=== PATIENT | male | born 1935 | race Caucasian/White ===

== ENCOUNTER → 2019-09-20 13:35 | Outpatient (BNVA) | payer MEDICARE, SELFPAY | PROVIDERS: Referring Provider Physician Assistant Medical; Visit Provider Orthopaedic Surgery | DX: M25.512 Pain in left shoulder (principal) | CPT/HCPCS: 73030 ==

== ENCOUNTER 2019-11-12 13:37 | Emergency (ER) | payer MEDICARE, SELFPAY ==
[2019-11-12 13:40] VITALS: BMI 27.1
[2019-11-12 13:42] VITALS: BP 187/111; PULSE 94; RESP 18; TEMP 36.9; O2SAT 94
--- NOTE | 2019-11-12 13:44 | W.ED.WOUNDLC ---
HPI - Wound/Laceration General: Chief Complaint: Wound/Laceration Stated Complaint: HEAD LAC Time Seen by Provider: 11/12/19 13:41 Source: patient Mode of arrival: ambulatory Limitations: no limitations History of Present Illness: HPI narrative: Patient was working on a porch at home today when the being gave away and came down on patient's head and right forearm. Patient has a injury to the right forearm and a scalp laceration to the head. Patient reports no fall. Patient reports no headache. Patient denies any use of blood thinners. Tetanus up to date. Review of Systems General: Reports: 10 or more systems reviewed and unremarkable except in HPI and below Skin/Breast: Reports: other (laceration scalp, abrasion right forearm) PFSH ED PFSH: Social History Smoking and tobacco status: former smoker Alcohol intake: never Physical Exam Const: COMMON NORMALS: no apparent distress and oriented x3 GENERAL APPEARANCE: cooperative HENMT: COMMON NORMALS: normocephalic, external ears normal, EAC's normal, TM's normal bilaterally and external nose normal HEAD & SCALP: normal to inspection and normocephalic FACE & SINUS: normal facial exam NOSE: external nose normal GENERAL EAR: hearing not grossly impaired EXTERNAL EAR: Yes external ears normal EXTERNAL AUDITORY CANAL: EAC's normal TYMPANIC MEMBRANE: TM's normal bilaterally MOUTH: oral and palatal mucosa normal THROAT: posterior oropharynx normal Eye: COMMON NORMALS: PERRL and EOMs intact bilaterally PUPIL: Yes PERRL Neck/C-Spine: COMMON NORMALS: full ROM and no lymphadenopathy Lymph: LYMPHATIC: no lymphedema noted Chest: COMMONS NORMALS: inspection of chest normal and palpation of chest normal Resp: COMMON NORMALS: normal respiratory effort and clear to auscultation bilaterally AUSCULTATION: clear to auscultation bilaterally Cardio: COMMON NORMALS: regular rate and regular rhythm RATE: regular rate RHYTHM: regular rhythm GI: COMMON NORMALS: normal to inspection, nondistended, normoactive bowel sounds and non-tender : COMMON NORMALS: Yes no CVA tenderness BLADDER/KIDNEY EXAM: Yes no CVA tenderness Back/Pelvis: COMMON NORMALS: no CVA tenderness and thoracic and lumbar spine normal to inspection Extremity: COMMON NORMALS: normal to inspection GENERAL: No edema Neuro: COMMON NORMALS: oriented x3, moves all extremities and no focal motor deficits Psych: COMMON NORMALS: mental status grossly normal and cooperative Skin: NARRATIVE SKIN EXAM: 3 cm laceration to the left parietal scalp area. Patient also has a 4 cm x 1 cm area of abrasion to the right forearm. Procedures Laceration Laceration 1: Site: scalp Side (If applicable): left Size (cm): 3 Description: linear Depth: simple, single layer Local Anesthetic: bupivacaine 0.5% Amount of anesthesia used (mL): 4 Pre-repair: wound explored and irrigated extensively Skin layer closed with: other (staple) Number of sutures: 5 Technique: simple, interrupted Course Vital Signs: Vital signs: Vital Signs Temperature 98.4 F 11/12/19 13:42 Pulse Rate 68 11/12/19 14:18 Respiratory Rate 18 11/12/19 14:18 Blood Pressure 171/86 11/12/19 14:18 Pulse Oximetry 96 11/12/19 14:18 MDM - Wound/Laceration MDM Narrative: Medical decision making narrative: Patient comes in today for concerns of laceration to the scalp and abrasion to the right forearm. Exam notes no focal neural deficits. Pupils are equal and reactive. No blood in the nares, posterior pharynx, or both ears. Patient has a 3 cm laceration to the parietal area of the left scalp. Patient also has an abrasion to the right forearm. Differential diagnosis includes laceration, foreign body, head injury, fracture. No sign of fracture or foreign body was noted in the wounds. Reviewed recommendations for treatment with closure of the laceration with 5 enriqueta. Patient tolerated well. Patient's tetanus was up-to-date. Reviewed post procedure care and need for follow-up. Patient and family report understanding. Discharge Plan Discharge Patient Disposition: Home, Self-Care Clinical Impression: Laceration, Abrasion Condition: Stable Prescriptions: New cephalexin 500 mg capsule 500 mg PO BID 7 Days Qty: 14 RF: 0 No Action aspirin 325 mg tablet 325 mg PO ONCE RF: 0 Discharge Orders: Discharge Order (Routine); Ordered 11/12/19 Ordered By: Chang Alvarado Referrals: [facility] [Other] Discharge Diet: Usual diet Discharge Activity: Increase activity as tolerated Patient Instructions: Scalp Laceration Activity Restrictions/Additional Instructions: Keep wound clean and dry Try to keep enriqueta dry for the next 48 hours [place] out in 7 days Return to ER for headache, vomiting or new concerns Follow-up with primary care in one week Discharge Date/Time: 11/12/19 14:18 Coding Level of Care Code ED Senior Pl Sql Developer for Chg Fwd Exam Comprehensive
[2019-11-12] MEDS: bacitracin ointment Pkt 1 EACH TOPICAL (14:09)
[2019-11-12 14:18] VITALS: BP 171/86; PULSE 68; RESP 18; O2SAT 96
== END 2019-11-12 14:18 | disposition home or self-care (01) ==
PROVIDERS: Emergency Provider Nurse Practitioner Family
DX: S01.01XA Laceration without foreign body of scalp, initial encounter (principal); S50.811A Abrasion of right forearm, initial encounter; Z87.891 Personal history of nicotine dependence; W22.8XXA Striking against or struck by other objects, initial encounter; Y92.008 Other place in unspecified non-institutional (private) residence as the place of occurrence of the external cause
CPT/HCPCS: 12002; 12345; 99281; 99282

== ENCOUNTER → 2021-11-21 08:16 | Outpatient (BNVA) | payer MEDICARE, SELFPAY | PROVIDERS: Visit Provider Nurse Practitioner Family | DX: N40.1 Benign prostatic hyperplasia with lower urinary tract symptoms (principal) | CPT/HCPCS: 81003 ==

== ENCOUNTER → 2022-01-06 14:18 | Outpatient (BNVA) | payer MEDICARE, SELFPAY | PROVIDERS: Visit Provider Urology | DX: N40.1 Benign prostatic hyperplasia with lower urinary tract symptoms (principal); R39.198 Other difficulties with micturition | CPT/HCPCS: 81003 ==

== ENCOUNTER → 2022-04-24 14:13 | Outpatient (BNVA) | payer MEDICARE, SELFPAY | PROVIDERS: Visit Provider Urology | DX: N40.1 Benign prostatic hyperplasia with lower urinary tract symptoms (principal) | CPT/HCPCS: 81003; 99213 ==

== ENCOUNTER → 2022-10-02 07:59 | Outpatient (BNVA) | payer OTHER, SELFPAY | PROVIDERS: Visit Provider Urology | DX: N40.1 Benign prostatic hyperplasia with lower urinary tract symptoms (principal) | CPT/HCPCS: 81003 ==

== ENCOUNTER → 2022-12-31 09:34 | Outpatient (BNVA) | payer OTHER, SELFPAY | PROVIDERS: Visit Provider Podiatrist Foot & Ankle Surgery | DX: B35.1 Tinea unguium (principal); M20.41 Other hammer toe(s) (acquired), right foot; M20.42 Other hammer toe(s) (acquired), left foot; L84 Corns and callosities | CPT/HCPCS: 73630 ==

== ENCOUNTER 2023-03-18 13:53 | Outpatient (CLI) | payer MEDICARE, SELFPAY ==
--- NOTE | 2023-03-18 14:02 | CTR_ITS ---
PROCEDURE INFORMATION: Exam: CT Pelvis Without Contrast Exam date and time: 03/18/2023 2:30 PM Age: 87 years old Clinical indication: Pelvic pain; Patient HX: Back pain and testicular pain especially in the mornings. Narrow urine stream with blood if forced x 1 year. TECHNIQUE: Imaging protocol: Computed tomography of the pelvis without contrast. Radiation optimization: All CT scans at this facility use at least one of these dose optimization techniques: automated exposure control; mA and/or kV adjustment per patient size (includes targeted exams where dose is matched to clinical indication); or iterative reconstruction. REPORTING DATA: Count of CT and Cardiac NM exams in prior 12 months: This patient has received 0 known CTs and 0 known cardiac nuclear medicine studies in the 12 months prior to the current study. COMPARISON: CT abdomen pelvis w con* [id number] 12/21/2017 4:16 AM RADIATION DOSE METRICS: Total DLP (mGy-cm): 215.46 FINDINGS: Stomach and bowel: Diverticulosis of the distal colon. No diverticulitis. Appendix: No evidence of appendicitis. Intraperitoneal space: Unremarkable. No free air. No significant fluid collection. Lymph nodes: Unremarkable. No enlarged lymph nodes. Urinary bladder: The urinary bladder is of normal size and contour. No wall thickening. Reproductive: Enlarged prostate measuring 4.5 cm with small posterior calcifications. No focal lesion visualized. Bones/joints: Degenerative changes of the lumbar spine. No fracture. Soft tissues: Unremarkable. CT/CT pelvis con [id number] IMPRESSION: 1. No acute findings. 2. Enlarged prostate. No focal lesion identified. 3. Normal urinary bladder.
== END 2023-03-18 13:54 | disposition home or self-care (01) ==
PROVIDERS: PCP Physician Assistant; Visit Provider Physician Assistant
DX: R10.2 Pelvic and perineal pain (principal); N40.1 Benign prostatic hyperplasia with lower urinary tract symptoms; R39.198 Other difficulties with micturition; R31.9 Hematuria, unspecified; N50.819 Testicular pain, unspecified; M54.9 Dorsalgia, unspecified
CPT/HCPCS: 72192

== ENCOUNTER 2023-06-08 13:15 | Emergency (ER) | payer MEDICARE, SELFPAY ==
[2023-06-08 13:19] VITALS: BP 133/69; PULSE 82; RESP 16; TEMP 36.6; O2SAT 95; BMI 20.7
--- NOTE | 2023-06-08 14:02 | XR_ITS ---
WS: [id number] EXAMINATION: XR chest 1V portable [id number] REASON FOR EXAM: dyspnea/cough ORDER DATE: 06/08/2023 2:03 PM FINDINGS: There are perihilar and parenchymal granulomatous calcifications. Cardiomegaly is demonstrated. Ther e is an atherosclerotic aorta containing calcified plaque. There are no pleural effusions. IMPRESSION: CARDIOMEGALY WITH NO ACUTE PULMONARY CHANGE.
[2023-06-08 14:21] LABS: Basophils # 0.1 10^3/uL (0.0-0.1); Basophils % 0.9 %; Eosinophils # 0.1 10^3/uL (0.0-0.8); Eosinophils % 1.4 %; Hematocrit 40.1 % (37-53); Lymphocytes # 1.6 10^3/uL (0.8-4.8); Lymphocytes % 28.6 %; Mean Corpuscular HGB Conc 34.2 g/dL (30-55); Mean Corpuscular Hemoglobin 31.2 pg (27-33); Mean Corpuscular Volume 91.3 fl (82-101); Mean Platelet Volume 9.7 fL (7.4-10.4); Monocytes # 0.9 10^3/uL (0.2-0.9); Monocytes % 15.4 %; Neutrophils # 3.05 10^3/uL (1.8-7.7); Neutrophils % 53.5 %; Nucleated Red Blood Cells % 0 %; Platelet Count 201 10^3/cmm (157-399); Red Blood Count 4.39 10^6/uL (3.85-5.65)
--- NOTE | 2023-06-08 14:25 | W.ED.SKABFB ---
HPI - Skin/Abscess/Foreign Bdy General: Chief complaint: Skin/Abscess/Foreign Body Stated complaint: possible allergic reaction, upper body rash Time Seen by Provider: 06/08/23 13:32 Source: patient Mode of arrival: ambulatory History of Present Illness: 89-year-old male presents to the emergency room with a rash. He has a vasculitis-like rash to his upper extremities. He also has significant ecchymosis even some bulla formation over some of the rash on his chest and upper arms. This began 2 days after he started a course of Bactrim and he continued taking the Bactrim until he finished 7 days developed significant muscle aches with this he is not having difficulty breathing. The rash has increased. He denies any fever sweats or chills. MD complaint: rash Onset (ago): day(s) Location: generalized Relieving factors: none Exacerbating factors: none Associated symptoms: Deny arthralgias, chills, cough, fever(s), itching, myalgias, nausea, rigidity, short of breath or vomiting Treatments prior to arrival: none Review of Systems Const: Reports: fatigue and malaise; Denies: fever(s) or chills ENMT: Denies: throat pain, ear or mastoid pain, nasal discharge or nasal congestion Card: Denies: chest pain, edema, dyspnea on exertion or orthopnea Resp: Denies: dyspnea, productive cough or non-productive cough GI: Denies: nausea or vomiting : Denies: flank pain, dysuria, urinary frequency or urinary urgency Skin/Breast: Reports: rash, pruritus, erythema, skin pain, skin tenderness and changes in skin color PFSH ED PFSH: Medical History BPH loc w urin obs/LUTS Surgical History History of lumbar fusion Hx of cholecystectomy Family History Father , age 66 Cancer lung Mother , Age 80's of unknown cause Social History Smoking and tobacco status: former smoker Alcohol intake: never Substance/Drug Use: never Marital status: Current occupational status: retired Physical Exam Const: GENERAL APPEARANCE: cooperative and comfortable ORIENTATION/CONSCIOUSNESS: Yes awake, Yes oriented to person, Yes oriented to place and Yes oriented to time HENMT: COMMON NORMALS: normocephalic, atraumatic and hearing grossly normal bilaterally HEAD & SCALP: normocephalic and atraumatic Resp: COMMON NORMALS: normal respiratory effort, No retractions, No use of accessory muscles and clear to auscultation bilaterally AUSCULTATION: clear to auscultation bilaterally Cardio: COMMON NORMALS: regular rate, regular rhythm and No murmurs present (Cardio) RATE: regular rate RHYTHM: regular rhythm GI: COMMON NORMALS: Soft to palpation and No hepatosplenomegaly present AUSCULTATION: Yes normoactive bowel sounds PALPATION: Yes Soft to palpation, No Tenderness to palpation present (GI), No Guarding due to palpation present (GI) and Yes No hepatosplenomegaly present Extremity: COMMON NORMALS: normal to inspection, capillary refill normal, no clubbing, cyanosis or edema, no calf tenderness and no pedal edema Neuro: SENSORIUM/ORIENTATION: Yes oriented to person, Yes oriented to place and Yes oriented to time Skin: OTHER: Reddened erythematous rash it is not indurated and a few areas are small bulla formation that have deroofed and drained. 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 Discharged home on steroids and cetirizine he is not having any respiratory compromise advised him to consider himself allergic to all sulfa-based drugs from known and should not take any. He should follow-up in 2 to 3 days his primary care doctor. Medical Records I reviewed the patient's medical records. Lab Data I reviewed the patient's lab results. 06/08/23 14:15 06/08/23 14:15 Laboratory Results WBC 5.70 10^3/uL (3.29-11.43) 06/08/23 14:15 RBC 4.39 10^6/uL (3.85-5.65) 06/08/23 14:15 Hgb 13.70 g/dL (11.27-16.99) 06/08/23 14:15 Hct 40.1 % (37-53) 06/08/23 14:15 MCV 91.3 fl (82-101) 06/08/23 14:15 MCH 31.2 pg (27-33) 06/08/23 14:15 MCHC 34.2 g/dL (30-55) 06/08/23 14:15 RDW 14.0 % (12.1-15.1) 06/08/23 14:15 Plt Count 201 10^3/cmm (157-399) 06/08/23 14:15 MPV 9.7 fL (7.4-10.4) 06/08/23 14:15 Neut % (Auto) 53.5 % 06/08/23 14:15 Lymph % (Auto) 28.6 % 06/08/23 14:15 [place] % (Auto) 15.4 % 06/08/23 14:15 Eos % (Auto) 1.4 % 06/08/23 14:15 Baso % (Auto) 0.9 % 06/08/23 14:15 Neut # (Auto) 3.05 10^3/uL (1.8-7.7) 06/08/23 14:15 Lymph # (Auto) 1.6 10^3/uL (0.8-4.8) 06/08/23 14:15 [place] # (Auto) 0.9 10^3/uL (0.2-0.9) 06/08/23 14:15 Eos # (Auto) 0.1 10^3/uL (0.0-0.8) 06/08/23 14:15 Baso # (Auto) 0.1 10^3/uL (0.0-0.1) 06/08/23 14:15 Nucleated RBC % (auto) 0 % 06/08/23 14:15 Nucleated RBCs # 0.0 /100WBC 06/08/23 14:15 Sodium 133 mmol/L (136-145) L 06/08/23 14:15 Potassium 4.1 mmol/L (3.5-5.1) 06/08/23 14:15 Chloride 99 mmol/L (98-107) 06/08/23 14:15 Carbon Dioxide 23 mmol/L (22-29) 06/08/23 14:15 Anion Gap 15.1 (5-19) 06/08/23 14:15 BUN 14 mg/dL (8-23) 06/08/23 14:15 Creatinine 1.1 mg/dL (0.7-1.2) 06/08/23 14:15 GFR Calculation Not Reportable 06/08/23 14:15 Glucose 103 mg/dL (65-115) 06/08/23 14:15 Calculated Osmolality 277 mOsm/kg (285-295) L 06/08/23 14:15 Calcium 8.8 mg/dL (8.5-10.5) 06/08/23 14:15 Total Bilirubin 0.4 mg/dL (0.15-1.2) 06/08/23 14:15 AST 19 U/L (0-40) 06/08/23 14:15 ALT 9 U/L (0-41) 06/08/23 14:15 Alkaline Phosphatase 98 U/L (40-130) 06/08/23 14:15 Total Protein 7.2 g/dL (6.6-8.7) 06/08/23 14:15 Albumin 4.0 g/dL (3.5-5.2) 06/08/23 14:15 Globulin 3.2 g/dL (1.3-4.6) 06/08/23 14:15 All radiology interpretation(s) finalized by discharge Discharge Plan Discharge Patient Disposition: Home Clinical Impression: Urticarial vasculitis, Allergic reaction Condition: Stable Prescriptions: New prednisone 20 mg tablet 20 mg PO TID Qty: 15 0RF Rx Instructions: 1 p.o. 3 times daily x3 days, 1 p.o. twice daily x2 days, 1 p.o. daily x2 days cetirizine 10 mg tablet 10 mg PO BID Qty: 30 0RF Discharge Orders: Discharge ED (Routine); Ordered 06/08/23 Ordered By: Bishnu Cherry Referrals: Domingo Quinones DO [Primary Care Provider] - Patient Instructions: Opioid Safety, Pain Management Activity Restrictions/Additional Instructions: Follow-up with your doctor in 2 to 3 days to reevaluate the reaction do not take sulfa based drugs in the future. The reaction today represents a true allergic reaction Coding Level of Care Code ED Technical Service Representative for Ellie Jones
[2023-06-08] MEDS: dexamethasone 10 mg/mL INJ IM (14:31)
[2023-06-08] MEDS: diphenhydrAMINE 50 mg/mL SDV 1mL 25 MG IVP (14:32)
[2023-06-08 14:48] LABS: Alanine Aminotransferase 9 U/L (0-41); Alkaline Phosphatase 98 U/L (40-130); Anion Gap 15.1 (5-19); Aspartate Amino Transferase 19 U/L (0-40); Blood Urea Nitrogen 14 mg/dL (8-23); Calcium 8.8 mg/dL (8.5-10.5); Carbon Dioxide 23 mmol/L (22-29); Chloride 99 mmol/L (98-107); Globulin 3.2 g/dL (1.3-4.6); Glucose 103 mg/dL (65-115); Osmolality Calculated 277 mOsm/kg (285-295); Potassium 4.1 mmol/L (3.5-5.1); Sodium 133 mmol/L (136-145); Total Bilirubin 0.4 mg/dL (0.15-1.2); Total Protein 7.2 g/dL (6.6-8.7)
== END 2023-06-08 15:58 | disposition home or self-care (01) ==
PROVIDERS: Emergency Provider Family Medicine; PCP Family Medicine
DX: L50.9 Urticaria, unspecified (principal); T36.8X5A Adverse effect of other systemic antibiotics, initial encounter; Z87.891 Personal history of nicotine dependence
CPT/HCPCS: 36415; 71045; 80053; 85025; 96372; 96374; 99284; J1100; J1200

== ENCOUNTER → 2023-07-09 13:44 | Outpatient (BNVA) | payer MEDICARE, SELFPAY | PROVIDERS: PCP Family Medicine; Visit Provider Surgery | DX: K22.2 Esophageal obstruction | CPT/HCPCS: 99204 ==

== ENCOUNTER → 2023-07-23 15:26 | Outpatient (BNVA) | payer MEDICARE, SELFPAY | PROVIDERS: PCP Family Medicine; Visit Provider Surgery | DX: K22.2 Esophageal obstruction (principal) | CPT/HCPCS: G0463 ==

== ENCOUNTER 2024-05-17 08:24 | Emergency (ER) | payer MEDICARE, SELFPAY ==
[2024-05-17 08:30] VITALS: BP 167/71; PULSE 76; RESP 15; TEMP 36.6; O2SAT 96; BMI 22.7
--- NOTE | 2024-05-17 08:42 | XRR_ITS ---
PROCEDURE INFORMATION: Exam: XR Left Foot Exam date and time: 05/17/2024 8:50 AM Age: 88 years old Clinical indication: Injury or trauma; Fall; Blunt trauma; Foot; Left; Injury date: Couple of days ago TECHNIQUE: Imaging protocol: Radiologic exam of the left foot. Views: 3 or more views. COMPARISON: No relevant prior studies available. FINDINGS: Bones/joints: Tiny, minimally displaced avulsion fractures at the medial bases of the 2nd and 4th proximal phalanges. Mild contour deformity at the base of the 5th proximal phalanx may represent subtle nondisplaced fracture. Note made of mild widening of the Lisfranc joint space. Cjip-ve-grvefawr degenerative change in the midfoot. Soft tissues: Normal. XR/XR foot LT min 3V* [id number] IMPRESSION: 1. Possible Lisfranc fracture. Weightbearing views of the left foot recommended. 2. Tiny, minimally displaced avulsion fractures at the medial bases of the 2nd and 4th proximal phalanges.
--- NOTE | 2024-05-17 08:42 | ED_ITS ---
HPI - Extremity Problem General: Chief complaint: Extremity Injury, Lower Stated complaint: left foot injury Time Seen by Provider: 05/17/24 08:42 History of Present Illness: 88-year-old male presents emergency room after stumbling and falling 3 days ago. He tripped and had a flexion injury to the first second and third toes on his left foot he fell and has an abrasion on his left forearm as well he denies striking his head no loss consciousness no other injury. He has increased pain in his foot. He is unsure of his last tetanus shot. Associated symptoms: Deny chest pain, fever(s) or rash Related Data Home Medications Medication Instructions Recorded Confirmed amlodipine 2.5 mg tablet 2.5 mg PO DAILY 05/17/24 05/17/24 Allergies Allergy/AdvReac Type Severity Reaction Status Date / Time cortisone Allergy swelling Verified 07/23/23 15:26 in eyes Iodinated Contrast Media Allergy increased Verified 07/23/23 15:26 BP sulfamethoxazole Allergy ALGY-Rash Verified 07/23/23 15:26 Review of Systems Const: Denies: fever(s) or chills Card: Denies: chest pain Resp: Denies: dyspnea GI: Denies: abdominal pain : Denies: dysuria, urinary frequency or urinary urgency Musc: Reports: extremity pain; Denies: neck pain or back pain Skin/Breast: Denies: rash PFSH ED PFSH: Medical History BPH loc w urin obs/LUTS Surgical History History of lumbar fusion Hx of cholecystectomy Family History Father , age 66 Cancer lung Mother , Age 80's of unknown cause Social History Smoking and tobacco/nicotine status: former use of tobacco/nicotine Alcohol intake: never Substance/Drug Use: never Marital status: Current occupational status: retired Physical Exam Const: COMMON NORMALS: no acute distress GENERAL APPEARANCE: cooperative and comfortable ORIENTATION/CONSCIOUSNESS: Yes awake, Yes oriented to person, Yes oriented to place and Yes oriented to time HENMT: COMMON NORMALS: normocephalic, atraumatic and hearing grossly normal bilaterally HEAD & SCALP: normocephalic and atraumatic Resp: COMMON NORMALS: normal respiratory effort, No retractions, No use of accessory muscles and clear to auscultation bilaterally AUSCULTATION: clear to auscultation bilaterally Cardio: COMMON NORMALS: regular rate, regular rhythm and No murmurs present (Cardio) RATE: regular rate RHYTHM: regular rhythm GI: COMMON NORMALS: Soft to palpation and No hepatosplenomegaly present AUSCULTATION: Yes normoactive bowel sounds PALPATION: Yes Soft to palpation, No Tenderness to palpation present (GI), No Guarding due to palpation present (GI) and Yes No hepatosplenomegaly present Extremity: COMMON NORMALS: capillary refill normal, no clubbing, cyanosis or edema, no calf tenderness and no pedal edema OTHER: Ecchymosis of the second third and fourth toes of the left foot no other deformity Neuro: SENSORIUM/ORIENTATION: Yes oriented to person, Yes oriented to place and Yes oriented to time Skin: COMMON NORMALS: no rashes or lesions noted GENERAL SKIN EXAM: no rashes or lesions noted Course Vital Signs: Vital signs: Vital Signs Temperature 97.9 F 05/17/24 08:30 Pulse Rate 54 L 05/17/24 13:03 Respiratory Rate 15 05/17/24 08:30 Blood Pressure 178/98 05/17/24 13:03 Pulse Oximetry 97 05/17/24 13:03 Oxygen Delivery Me thod Room Air 05/17/24 11:48 MDM - Extremity (Nontraumatic) Medical Decision Making X-ray initially does show proximal phalanx fracture in the fifth PIP phalanx fracture. Is her avulsion type fracture is not significantly displaced there is a questionable income of the Lisfranc fracture discussed with podiatry they reviewed the films they asked that we go ahead and do the CT. CT did not show any evidence for the fracture to confirm the other fractures that were seen. Will discharge patient in a posterior short leg cast and nonweightbearing have him follow-up with urology next week. Elevate whenever able. Medical Records I reviewed the patient's medical records. Lab Data I reviewed the patient's lab results. Radiology Impressions Foot X-Ray 05/17/24 08:42 IMPRESSION: 1. Possible Lisfranc fracture. Weightbearing views of the left foot recommended. 2. Tiny, minimally displaced avulsion fractures at the medial bases of the 2nd and 4th proximal phalanges. Forearm X-Ray 05/17/24 08:42 IMPRESSION: 1. No acute fracture or malaligment. 2. Few foreign bodies project in the medial and lateral soft tissues of the mid forearm, and over the thumb distal metacarpal head. Foot CT 05/17/24 10:54 IMPRESSION: Exam is limited somewhat due to positioning 1. Avulsion fractures at the base of the second proximal phalanx and base of the fourth proximal phalanx. 2. Additional tiny nondisplaced fracture involving the base of the fifth proximal phalanx. 3. 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 All radiology interpretation(s) finalized by discharge Discharge Plan Discharge Patient Disposition: Home Clinical Impression: Fracture of proximal phalanx of toe of left foot Condition: Stable Prescriptions: No Action amlodipine 2.5 mg tablet 2.5 mg PO DAILY Discharge Orders: Discharge ED (Routine); Ordered 05/17/24 Ordered By: Bishnu Cherry Referrals: Domingo Quinones DO [Primary Care Provider] - Patient Instructions: Opioid Safety, Pain Management Activity Restrictions/Additional Instructions: Thank you for choosing [facility] for your healthcare needs today. It is very important that you follow up as instructed or that you return to the Emergency Department should you have concerns or if your condition changes or worsens in any way. You were found to have fractures of the toes on the left foot. You should wear a splint and use crutches until you follow-up with podiatry. Coding Level of Care Code ED Wastewater Technician for Ellie Jones
--- NOTE | 2024-05-17 08:42 | XRR_ITS ---
PROCEDURE INFORMATION: Exam: XR Left Forearm Exam date and time: 05/17/2024 8:51 AM Age: 88 years old Clinical indication: Injury or trauma; Fall; Blunt trauma (contusions or hematomas); Arm, upper; Left; Injury date: Couple of days ago TECHNIQUE: Imaging protocol: Radiologic exam of the left forearm. Views: 2 views. COMPARISON: No relevant prior studies available. FINDINGS: Bones/joints: No acute fracture or malalignment. No worrisome lytic or blastic osseous lesion. No appreciable cortical erosion or periosteal reaction. Joint spaces are preserved. No joint effusion. Soft tissues: Few foreign bodies project in the medial and lateral soft tissues of the mid forearm, and over the thumb distal metacarpal head. XR/XR forearm LT 2V [id number] IMPRESSION: 1. No acute fracture or malaligment. 2. Few foreign bodies project in the medial and lateral soft tissues of the mid forearm, and over the thumb distal metacarpal head.
[2024-05-17] MEDS: tetanus-dipt-pertussis 0.5 mL SDV IM (09:09)
--- NOTE | 2024-05-17 10:54 | CT_ITS ---
WS: [id number] Noncontrast CT LEFT foot TECHNIQUE: Noncontrast CT LEFT foot with coronal and sagittal reformatted images. CLINICAL INFORMATION: trauma COMPARISON: None. DLP: 190.[address] scans at [facility] use at least one of these dose optimization techniques: automated e xposure control; mA and/or kV adjustment per patient size (includes targeted exams where dose is matc hed to clinical indication); or iterative reconstruction. FINDINGS: Avulsion fracture of the base of the second proximal phalanx. Additional tiny avulsion base of the fo urth proximal phalanx. Tiny nondisplaced fracture involving the base of the fifth proximal phalanx. S econd metatarsal appears intact. Degenerative change at the first and second cuneiforms which appear intact. 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 Soft tissue calcification at the head of the fifth metatarsal. Normal cuboid. Calcaneus appears rebecca l. Talus appears normal. Normal distal tibial plafond. Distal fibula and lateral malleolus are normal . Normal navicular. CT/CT foot LT wo con* [id number] IMPRESSION: Exam is limited somewhat due to positioning 1. Avulsion fractures at the base of the second proximal phalanx and base of t he fourth proximal phalanx. 2. Additional tiny nondisplaced fracture involving the base of the fifth proxi mal phalanx. 3. 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
[2024-05-17 11:48] VITALS: PULSE 89; O2SAT 98
[2024-05-17 13:03] VITALS: BP 178/98; PULSE 54; O2SAT 97
== END 2024-05-17 13:04 | disposition home or self-care (01) ==
PROVIDERS: Emergency Provider Family Medicine; PCP Family Medicine
DX: S92.515A Nondisplaced fracture of proximal phalanx of left lesser toe(s), initial encounter for closed fracture (principal); Z87.891 Personal history of nicotine dependence; W01.0XXA Fall on same level from slipping, tripping and stumbling without subsequent striking against object, initial encounter; Z23 Encounter for immunization
CPT/HCPCS: 29515; 73090; 73630; 73700; 90715; 99284

== ENCOUNTER 2024-05-19 15:48 | Outpatient (CLI) | payer MEDICARE, SELFPAY | END 2024-05-19 15:49 | disposition home or self-care (01) | LOC: SPT 15:51 | PROVIDERS: PCP Family Medicine; Visit Provider Podiatrist Foot & Ankle Surgery | DX: S92.335A Nondisplaced fracture of third metatarsal bone, left foot, initial encounter for closed fracture (principal); S92.325A Nondisplaced fracture of second metatarsal bone, left foot, initial encounter for closed fracture; X58.XXXA Exposure to other specified factors, initial encounter; B35.1 Tinea unguium; M20.41 Other hammer toe(s) (acquired), right foot; M20.42 Other hammer toe(s) (acquired), left foot; L84 Corns and callosities; W01.0XXA Fall on same level from slipping, tripping and stumbling without subsequent striking against object, initial encounter | CPT/HCPCS: 97760; 99213; L4361 ==

== ENCOUNTER → 2024-06-09 16:02 | Outpatient (BNVA) | payer MEDICARE, SELFPAY | PROVIDERS: PCP Family Medicine; Visit Provider Podiatrist Foot & Ankle Surgery | DX: S92.912A Unspecified fracture of left toe(s), initial encounter for closed fracture; S92.512A Displaced fracture of proximal phalanx of left lesser toe(s), initial encounter for closed fracture; S92.515A Nondisplaced fracture of proximal phalanx of left lesser toe(s), initial encounter for closed fracture; M20.41 Other hammer toe(s) (acquired), right foot; M20.42 Other hammer toe(s) (acquired), left foot; L84 Corns and callosities | CPT/HCPCS: 73630; 99213 ==

== ENCOUNTER → 2024-07-13 15:16 | Outpatient (BNVA) | payer MEDICARE, SELFPAY | PROVIDERS: PCP Family Medicine; Visit Provider Podiatrist Foot & Ankle Surgery | DX: L60.0 Ingrowing nail (principal); S92.912A Unspecified fracture of left toe(s), initial encounter for closed fracture; X58.XXXA Exposure to other specified factors, initial encounter; B35.1 Tinea unguium; M20.41 Other hammer toe(s) (acquired), right foot; M20.42 Other hammer toe(s) (acquired), left foot; L84 Corns and callosities | CPT/HCPCS: 11750; 99213 ==

== ENCOUNTER 2024-07-20 15:57 | Emergency (ER) | payer MEDICARE, SELFPAY ==
--- NOTE | 2024-07-20 16:01 | XRR_ITS ---
PROCEDURE INFORMATION: Exam: XR Left Wrist Exam date and time: 07/20/2024 4:28 PM Age: 89 years old Clinical indication: Injury or trauma; Fall; Blunt trauma (contusions or hematomas); Wrist and hand; Left TECHNIQUE: Imaging protocol: Radiologic exam of the left wrist. Views: 3 or more views. COMPARISON: CR XR hand LT min 3V* [id number] 07/20/2024 4:28 PM FINDINGS: Bones/joints: No definite acute fracture or dislocation. Joint spaces are preserved. Soft tissues: Redemonstrated radiopaque foreign body adjacent to the 1st metacarpal. Punctate hyperdense foci also seen adjacent to the distal radius. Scattered vascular calcifications. XR/XR wrist LT min 3V* [id number] IMPRESSION: No acute osseous findings.
--- NOTE | 2024-07-20 16:01 | XRR_ITS ---
PROCEDURE INFORMATION: Exam: XR Left Hand Exam date and time: 07/20/2024 4:28 PM Age: 89 years old Clinical indication: Injury or trauma; Fall; Blunt trauma (contusions or hematomas); Wrist and hand; Left TECHNIQUE: Imaging protocol: Radiologic exam of the left hand. Views: 3 or more views. COMPARISON: CR XR forearm LT 2V [id number] 05/17/2024 8:51 AM FINDINGS: Bones/joints: Mild polyarticular degenerative changes involving the interphalangeal joints. Mild cortical irregularity with the thin lucency involving the 5th middle phalanx. No dislocation. Soft tissues: Small radiopaque foreign body again seen adjacent to the 1st metacarpal. XR/XR hand LT min 3V* [id number] IMPRESSION: Mild cortical irregularity along the 5th middle phalanx could represent a nondisplaced fracture or may be artifactual. Correlate with physical exam findings.
[2024-07-20 16:32] VITALS: BP 191/85; PULSE 88; RESP 18; TEMP 36.7; O2SAT 94; BMI 22.7
[2024-07-20] MEDS: lidocaine-epi 2% 20 mL INJ INJECTION (18:28)
[2024-07-20] MEDS: tetanus-dipt-pertussis 0.5 mL SDV IM (18:28)
[2024-07-20] MEDS: acetaminophen 500 mg Tablet 1000 MG PO (18:29)
[2024-07-20 19:17] VITALS: BP 179/81; PULSE 78; RESP 16; O2SAT 96
--- NOTE | 2024-07-20 20:56 | ED_ITS ---
HPI - Extremity Problem General: Chief complaint: Extremity Injury, Upper Stated complaint: fell left hand injury Time Seen by Provider: 07/20/24 16:51 Source: patient Mode of arrival: ambulatory Limitations: no limitations History of Present Illness: Patient is an 89-year-old male who presents the emergency department with left hand injury after a fall. Patient states he tripped over his feet, landed on an outstretched left hand and is having pain diffusely to his left hand, though worse to the little finger. There is also report a laceration of the palmar aspect of his left hand, states his tetanus is not believed to be up-to-date. Bleeding is controlled on arrival however, no blood thinner use. No other injuries reported with the fall. He did take some Tylenol prior to coming in and states this did help his pain. MD Complaint: extremity pain (Left hand) Onset (ago): hour(s) Associated symptoms: Deny chest pain, fever(s) or rash Related Data Home Medications Medication Instructions Recorded Confirmed amlodipine 2.5 mg tablet 2.5 mg PO DAILY 05/17/24 07/13/24 Previous Rx's Medication Instructions Recorded CAM boot/weight bearing/Left foot #1 ea 05/19/24 Allergies Allergy/AdvReac Type Severity Reaction Status Date / Time cortisone Allergy swelling Verified 07/13/24 15:30 in eyes Iodinated Contrast Media Allergy increased Verified 07/13/24 15:30 BP sulfamethoxazole Allergy ALGY-Rash Verified 07/13/24 15:30 Review of Systems General: Reports: 10 or more systems reviewed and unremarkable except in HPI and below Const: Denies: fever(s) or chills Card: Denies: chest pain Resp: Denies: dyspnea or productive cough GI: Denies: abdominal pain, nausea, vomiting or diarrhea : Denies: flank pain Musc: Reports: extremity pain (Left hand); Denies: neck pain, back pain, extremity swelling, joint pain, joint swelling, joint redness, joint warmth, limited range of motion or muscle weakness Skin/Breast: Reports: new lesions (Laceration to left palm); Denies: rash Neuro: Denies: headache(s), numbness in extremities or weakness in extremities PFS ED PFSH: Medical History BPH loc w urin obs/LUTS Surgical History History of lumbar fusion Hx of cholecystectomy Family History Father , age 66 Cancer lung Mother , Age 80's of unknown cause Social History Smoking and tobacco/nicotine status: unknown if used tobacco/nicotine Alcohol intake: never Substance/Drug Use: never Marital status: Current occupational status: retired Physical Exam Const: COMMON NORMALS: no acute distress, average body habitus, patient oriented x3, no limitations, healthy appearing, alert and well nourished HENMT: COMMON NORMALS: normocephalic and atraumatic HEAD & SCALP: normocephalic and atraumatic Neck/C-Spine: COMMON NORMALS: full ROM, no lymphadenopathy, supple and no meningeal signs Resp: COMMON NORMALS: normal respiratory effort, No use of accessory muscles and clear to auscultation bilaterally AUSCULTATION: clear to auscultation bilaterally Cardio: COMMON NORMALS: regular rate and regular rhythm RATE: regular rate RHYTHM: regular rhythm Extremity: COMMON NORMALS: full ROM and capillary refill normal NARRATIVE EXTREMITY EXAM: Tenderness to palpation of the left hand, primarily to the ulnar aspect as well as to the left little finger. No swelling or obvious deformity. No bruising. Distal sensations intact. Neuro: COMMON NORMALS: patient oriented x3, moves all extremities, no focal motor deficits and no sensory deficits noted SENSORIUM/ORIENTATION: Yes alert MENINGEAL SIGNS: Yes no meningeal signs Skin: COMMON NORMALS: turgor normal NARRATIVE SKIN EXAM: Laceration noted to left palm, just inferior to palmar aspect of left fifth MCP. No active bleeding, this is measuring approximately 2.5 cm in length. GENERAL SKIN EXAM: turgor normal Procedures Laceration Laceration 1: Site: hand Side (If applicable): left Size (cm): 2.5 Description: linear (Curvilinear) and clean Depth: simple, single layer Local Anesthetic: lidocaine 2% and with epi Amount of anesthesia used (mL): 2 Pre-repair: wound explored, irrigated extensively and deep structures intact Skin layer closed with: other (Prolene) Size (cm): 4-0 Number of sutures: 4 Technique: simple, interrupted Course Vital Signs: Vital signs: Vital Signs Temperature 98.0 F 07/20/24 16:32 Pulse Rate 78 07/20/24 19:17 Respiratory Rate 16 07/20/24 19:17 Blood Pressure 179/81 07/20/24 19:17 Pulse Oximetry 96 07/20/24 19:17 Oxygen Delivery Me thod Room Air 07/20/24 16:32 MDM - Extremity (Nontraumatic) Medical Decision Making Patient had a fall, injuries to left hand include pain and a laceration. Laceration was repaired, see procedure note. He was already started on antibiotics by primary care earlier today. His tetanus was also updated today. X-ray of the left hand showed potentially a fracture of the fifth middle phalanx, patient was endorsing pain in this area so we will matheus tape with the left ring finger and refer him to orthopedics. Return precautions given. Patient be discharged home at this time. Lab Data Radiology Impressions Hand X-Ray 07/20/24 16:01 IMPRESSION: Mild cortical irregularity along the 5th middle phalanx could represent a nondisplaced fracture or may be artifactual. Correlate with physical exam findings. Wrist X-Ray 07/20/24 16:01 IMPRESSION: No acute osseous findings. All radiology interpretation(s) finalized by discharge Discharge Plan Discharge Patient Disposition: Home Clinical Impression: Fracture of phalanx of left little finger, Laceration of left palm Condition: Stable Prescriptions: No Action (DME) CAM boot/weight bearing/Left foot See Rx Instructions .Route .MEDSUPPLY Qty: 1 0RF Rx Instructions: As directed amlodipine 2.5 mg tablet 2.5 mg PO DAILY Discharge Orders: Discharge ED (Routine); Ordered 07/20/24 Ordered By: Ike Curtis Referrals: Domingo Quinones, [Primary Care Provider] - Patient Instructions: Fractures - Phalanx (Finger), Laceration (ED) Activity Restrictions/Additional Instructions: Follow-up with orthopedics, await call for appointment scheduling. Have your sutures out in 5 days, and take antibiotics as you are already prescribed. Keep wound dry at all times to facilitate healing, when you clean it please just dab it with warm soap and water. Tylenol and ibuprofen for pain relief. Return with any new or worsening symptoms. 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
--- NOTE | 2024-07-21 11:40 | DCPLANNER ---
messaged ortho for er f/u
== END 2024-07-20 19:19 | disposition home or self-care (01) ==
PROVIDERS: Emergency Provider Physician Assistant; PCP Family Medicine
DX: S62.607A Fracture of unspecified phalanx of left little finger, initial encounter for closed fracture (principal); S61.412A Laceration without foreign body of left hand, initial encounter; W19.XXXA Unspecified fall, initial encounter
CPT/HCPCS: 12001; 73110; 73130; 90471; 90715; 99283

== ENCOUNTER 2024-07-27 09:19 | Emergency (ER) | payer MEDICARE, SELFPAY ==
[2024-07-27 09:27] VITALS: BP 161/74; PULSE 63; RESP 18; TEMP 36.3; O2SAT 95; BMI 21.4
--- NOTE | 2024-07-27 09:53 | ED_ITS ---
HPI - Recheck/Abnormal Lab/Rx General: Chief Complaint: Recheck/Abnormal Lab/Rx Stated Complaint: remove stiches out of hand Time Seen by Provider: 07/27/24 09:28 History of Present Illness: 89-year-old male who presents emergency room asking to have sutures removed. They replaced 1 week ago. He has been fully functional in his hand no difficulty there is a question of fracture previously not having any further pain on the fifth digit where there was suspicion of a fracture on the previous x-ray. Related Data Home Medications Medication Instructions Recorded Confirmed amlodipine 2.5 mg tablet 2.5 mg PO QAM 05/17/24 07/27/24 amoxicillin 500 mg-potassium 1 tab PO BID 07/27/24 07/27/24 clavulanate 125 mg tablet fluticasone propionate 50 1 - 2 spray intranasal DAILY PRN 07/27/24 07/27/24 mcg/actuation nasal allergies spray,suspension Previous Rx's Medication Instructions Recorded CAM boot/weight bearing/Left foot #1 ea 05/19/24 Allergies Allergy/AdvReac Type Severity Reaction Status Date / Time cortisone Allergy swelling Verified 07/13/24 15:30 in eyes Iodinated Contrast Media Allergy increased Verified 07/13/24 15:30 BP sulfamethoxazole Allergy ALGY-Rash Verified 07/13/24 15:30 PFSH ED PFSH: Medical History BPH loc w urin obs/LUTS Surgical History History of lumbar fusion Hx of cholecystectomy Family History Father , age 66 Cancer lung Mother , Age 80's of unknown cause Social History Smoking and tobacco/nicotine status: unknown if used tobacco/nicotine Alcohol intake: never Substance/Drug Use: never Marital status: Current occupational status: retired Physical Exam Narrative: EXAM NARRATIVE: Sutures removed wound Steri-Stripped part of the wound proximally is slightly dehisced skin is tucked into the incision. No active bleeding no signs of infection. He has no pain with palpation along the left fifth finger. He is able to flex and hold against resistance. Course Vital Signs: Vital signs: Vital Signs Temperature 97.4 F L 07/27/24 09:27 Pulse Rate 63 07/27/24 09:27 Respiratory Rate 18 07/27/24 09:27 Blood Pressure 161/74 07/27/24 09:27 Pulse Oximetry 95 07/27/24 09:27 Oxygen Delivery Me thod Room Air 07/27/24 09:27 MDM - Recheck/Abnormal Lab/Rx Medical Decision Making Sutures removed without difficulty wound care instructions given reinforced with Steri-Strips Medical Records I reviewed the patient's medical records. No radiology studies performed this visit Discharge Plan Discharge Patient Disposition: Home Clinical Impression: Encounter for removal of sutures Condition: Stable Prescriptions: No Action (DME) CAM boot/weight bearing/Left foot See Rx Instructions .Route .MEDSUPPLY Qty: 1 0RF Rx Instructions: As directed fluticasone propionate 50 mcg/actuation spray,suspension 1 - 2 spray INTRANASAL DAILY PRN (Reason: allergies) amoxicillin-pot clavulanate 500-125 mg tablet 1 tab PO BID amlodipine 2.5 mg tablet 2.5 mg PO QAM Discharge Orders: Discharge ED (Routine); Ordered 07/27/24 Ordered By: Bishnu Cherry Referrals: Domingo Quinones, DO [Primary Care Provider] - Discharge Activity: Resume usual activity Patient Instructions: Stitches Removal (ED), Opioid Safety, Pain Management Activity Restrictions/Additional Instructions: Thank you for choosing [facility] for your healthcare needs today. It is very important that you follow up as instructed or that you return to the Emergency Department should you have concerns or if your condition changes or worsens in any way. 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
== END 2024-07-27 10:02 | disposition home or self-care (01) ==
PROVIDERS: Emergency Provider Family Medicine; PCP Family Medicine
DX: Z48.02 Encounter for removal of sutures (principal)
CPT/HCPCS: 99281

== ENCOUNTER 2024-08-21 10:34 | Emergency (ER) | payer MEDICARE, SELFPAY ==
[2024-08-21 10:50] VITALS: BP 171/92; PULSE 81; RESP 22; TEMP 35.9; O2SAT 96; BMI 22.7
--- NOTE | 2024-08-21 10:59 | CTR_ITS ---
PROCEDURE INFORMATION: Exam: CT Head Without Contrast Exam date and time: 08/21/2024 11:13 AM Age: 89 years old Clinical indication: Injury or trauma; Fall; Blunt trauma (contusions or hematomas); Additional info: Fall, head injury TECHNIQUE: Imaging protocol: Computed tomography of the head without contrast. Radiation optimization: All CT scans at this facility use at least one of these dose optimization techniques: automated exposure control; mA and/or kV adjustment per patient size (includes targeted exams where dose is matched to clinical indication); or iterative reconstruction. COMPARISON: CT head w con [id number] 06/29/2019 11:01 AM RADIATION DOSE METRICS: Total DLP (mGy-cm): 1162.6 FINDINGS: Brain: There are bilateral periventricular white matter and centrum semiovale hypodensities, consistent with chronic ischemic small vessel disease. No recent infarct, intracranial bleed or mass effect. Cerebral ventricles: No ventriculomegaly. Paranasal sinuses: Visualized sinuses are unremarkable. No fluid levels. Mastoid air cells: Visualized mastoid air cells are well aerated. Orbital cavities: Post bilateral cataract surgery. Bones: Benign hyperostosis frontalis is present. Soft tissues: Unremarkable. Vasculature: Left vertebral artery calcified atheroma. CT/CT head wo con* [id number] IMPRESSION: No acute intracranial posttraumatic changes.
--- NOTE | 2024-08-21 11:05 | CTR_ITS ---
PROCEDURE INFORMATION: Exam: CT Maxillofacial Without Contrast Exam date and time: 08/21/2024 11:13 AM Age: 89 years old Clinical indication: Injury or trauma; Fall; Blunt trauma (contusions or hematomas); Forehead and nose; Additional info: Trauamatic facial pain TECHNIQUE: Imaging protocol: Computed tomography of the face without contrast. Radiation optimization: All CT scans at this facility use at least one of these dose optimization techniques: automated exposure control; mA and/or kV adjustment per patient size (includes targeted exams where dose is matched to clinical indication); or iterative reconstruction. COMPARISON: CT facial bones w con [id number] 06/29/2019 11:09 AM RADIATION DOSE METRICS: Total DLP (mGy-cm): 686.2 FINDINGS: Paranasal sinuses: No air-fluid levels. Orbital cavities: Post bilateral cataract surgery. Vasculature: Calcified atheromas of the visualized arteries. Bones: There is a nondisplaced fracture of the right nasal bone. Soft tissues: Soft tissue swelling overlying the nose. CT/CT facial bones wo con* [id number] IMPRESSION: Nondisplaced fracture of the nasal bone with overlying soft tissue swelling.
--- NOTE | 2024-08-21 11:32 | W.ED.FALL ---
HPI - Fall General: Chief Complaint: Fall Stated Complaint: open cut on nose, bleeding Time Seen by Provider: 08/21/24 10:56 History of Present Illness: 89-year-old man who presents emergency room after a fall. He says he tripped and fell he caught himself with his hands and has some abrasions on his hands. He hit his nose on asphalt. He has a puncture/laceration on the top of his nose. He is concerned about that and that he might have broken his nose. He is not on any anticoagulation. He did not lose consciousness. He is had no nausea or vomiting. No altered mental status. Related Data Home Medications Medication Instructions Recorded Confirmed amlodipine 2.5 mg tablet 2.5 mg PO QAM 05/17/24 07/27/24 amoxicillin 500 mg-potassium 1 tab PO BID 07/27/24 07/27/24 clavulanate 125 mg tablet fluticasone propionate 50 1 - 2 spray intranasal DAILY PRN 07/27/24 07/27/24 mcg/actuation nasal allergies spray,suspension Previous Rx's Medication Instructions Recorded CAM boot/weight bearing/Left foot #1 ea 05/19/24 Allergies Allergy/AdvReac Type Severity Reaction Status Date / Time cortisone Allergy swelling Verified 07/13/24 15:30 in eyes Iodinated Contrast Media Allergy increased Verified 07/13/24 15:30 BP sulfamethoxazole Allergy ALGY-Rash Verified 07/13/24 15:30 Review of Systems Narrative: Constitutional symptoms: Negative except as documented in HPI. Skin symptoms: Negative except as documented in HPI. Eye symptoms: Negative except as documented in HPI. ENMT symptoms: Negative except as documented in HPI. Respiratory symptoms: Negative except as documented in HPI. Cardiovascular symptoms: Negative except as documented in HPI. Gastrointestinal symptoms: Negative except as documented in HPI. Genitourinary symptoms: Negative except as documented in HPI. Musculoskeletal symptoms: Negative except as documented in HPI. Neurologic symptoms: Negative except as documented in HPI. Psychiatric symptoms: Negative except as documented in HPI. Endocrine symptoms: Negative except as documented in HPI. [facility] ED PFSH: Medical History BPH loc w urin obs/LUTS Surgical History History of lumbar fusion Hx of cholecystectomy Family History Father , age 66 Cancer lung Mother , Age 80's of unknown cause Social History Smoking and tobacco/nicotine status: unknown if used tobacco/nicotine Alcohol intake: never Substance/Drug Use: never Marital status: Current occupational status: retired Physical Exam Narrative: EXAM NARRATIVE: General: Alert, no acute distress. Skin: Warm, dry. Some abrasions on the hands Head: Normocephalic, swelling of the nose. There is a puncture type laceration on the bridge of the nose. Slight deviation to the right. No septal hematoma. Neck: Supple, trachea midline. Eye: Extraocular movements are intact. Ears, nose, mouth and throat: mucosa moist. Cardiovascular: Regular, Normal peripheral perfusion. Respiratory: Lungs are clear to auscultation, respirations are non-labored, breath sounds are equal, Symmetrical chest wall expansion. Gastrointestinal: Soft, Nontender, Non distended Musculoskeletal: Normal ROM, no deformity. Neurological: Alert and oriented, No focal neurological deficit observed. Psychiatric: Cooperative, appropriate mood & affect. Course Vital Signs: Vital signs: Vital Signs Temperature 96.7 F L 08/21/24 10:50 Pulse Rate 81 08/21/24 10:50 Respiratory Rate 22 H 08/21/24 10:50 Blood Pressure 171/92 08/21/24 10:50 Pulse Oximetry 96 08/21/24 10:50 Oxygen Delivery Me thod Room Air 08/21/24 10:50 MDM - Fall Medical Decision Making CT head: No acute intracranial process. no intracranial hemorrhage, no evidence of infarct. no evidence of acute fracture.This was reviewed and interpreted by myself the ER physician. CT of the facial bones: Nondisplaced fracture of the nasal bone with overlying soft tissue swelling. This was reviewed and interpreted by myself the emergency room physician. I also reviewed the radiology report. Appear to have some septal deviation. I recommend he follow-up with ENT. Patient states he thinks he is up-to-date on his Assessment and plan: Fall Nasal fracture Facial laceration Steri-Strips were applied to the small Puncture/laceration on the nose. - Discharged home - Discussed plan with patient. Answered any questions. - Evaluation and treatment of this problem were appropriate in the emergency setting. Lab Data Radiology Impressions Head CT 08/21/24 10:59 IMPRESSION: No acute intracranial posttraumatic changes. Face CT 08/21/24 11:05 IMPRESSION: Nondisplaced fracture of the nasal bone with overlying soft tissue swelling. All radiology interpretation(s) finalized by discharge Discharge Plan Discharge Patient Disposition: Home Clinical Impression: Fracture of nasal bone, Facial laceration, Fall Condition: Stable Prescriptions: No Action (DME) CAM boot/weight bearing/Left foot See Rx Instructions .Route .MEDSUPPLY Qty: 1 0RF Rx Instructions: As directed fluticasone propionate 50 mcg/actuation spray,suspension 1 - 2 spray INTRANASAL DAILY PRN (Reason: allergies) amoxicillin-pot clavulanate 500-125 mg tablet 1 tab PO BID amlodipine 2.5 mg tablet 2.5 mg PO QAM Discharge Orders: Discharge ED (Routine); Ordered 08/21/24 Ordered By: Tanisha Haji Referrals: Domingo Quinones DO [Primary Care Provider] - Estevan Collins MD [Physician] - 4-7 days (Please call for a follow-up appointment with Dr. Collins with regards to your broken nose.) Discharge Diet: Usual diet Discharge Activity: Increase activity as tolerated Patient Instructions: Nasal Fracture (ED), Fall Prevention for Older Adults (ED), Opioid Safety, Pain Management Activity Restrictions/Additional Instructions: Thank you for choosing [facility] for your healthcare needs today. Please realize this is an emergency room and that we are providing you with a medical screening exam and this may not be complete and all inclusive of all the testing and or work up that you may need to determine your ailment or severity of your illness. You have been screened and evaluated and felt safe for discharge. Health conditions do change or evolve sometimes and as such it is important that you follow up with your Primary Doctor to be re checked, 3-5 days is a general good time frame for follow up. 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
[2024-08-21 12:08] VITALS: BP 164/126; PULSE 65; O2SAT 94
== END 2024-08-21 12:09 | disposition home or self-care (01) ==
PROVIDERS: Emergency Provider Emergency Medicine; PCP Family Medicine
DX: S02.2XXA Fracture of nasal bones, initial encounter for closed fracture (principal); S01.81XA Laceration without foreign body of other part of head, initial encounter; W01.0XXA Fall on same level from slipping, tripping and stumbling without subsequent striking against object, initial encounter
CPT/HCPCS: 70450; 70486; 99284

== ENCOUNTER 2025-01-04 08:47 | Outpatient (CLI) | payer MEDICARE, SELFPAY ==
--- NOTE | 2025-01-04 08:56 | CTR_ITS ---
PROCEDURE INFORMATION: Exam: CT Neck Without Contrast Exam date and time: 01/04/2025 9:19 AM Age: 89 years old Clinical indication: Condition or disease; Other: Esophageal cancer; Additional info: Throat pain TECHNIQUE: Imaging protocol: Computed tomography of the neck without contrast. Radiation optimization: All CT scans at this facility use at least one of these dose optimization techniques: automated exposure control; mA and/or kV adjustment per patient size (includes targeted exams where dose is matched to clinical indication); or iterative reconstruction. COMPARISON: CT facial bones wo con* [id number] 08/21/2024 11:13 AM RADIATION DOSE METRICS: Total DLP (mGy-cm): 153.79 FINDINGS: Orbital cavities: The patient is post bilateral cataract surgery. Paranasal sinuses: There is a small amount of layering fluid and polypoid disease in the maxillary antra. Scattered mucosal disease is noted in the ethmoid air cells on the left. Nasal cavity: There is a rightward convexity deviation of the nasal septum. Salivary glands: Normal. Glands are normal in size. Pharynx: There is a 7 mm linear calcification along the left side of the epiglottis.. No significant tonsillar enlargement. Larynx: Unremarkable. Epiglottis is normal. Thyroid: There is a hypodense nodule in the inferior right thyroid lobe measuring 3.6 x 2.4 x 3.0 cm. Trachea: Visualized trachea is unremarkable. Lungs: Apical scarring is noted in the lungs. There is a 3 mm calcified granuloma in the right upper lobe. Lymph nodes: Calcific right paratracheal lymphadenopathy is noted Bones/joints: Cervical spondylosis is noted. Soft tissues: Unremarkable. No significant soft tissue swelling. Noncontrast technique limits assessment. CT/CT neck wo con [id number] IMPRESSION: No soft tissue mass or suspicious lymphadenopathy in the neck. No evidence for airway obstruction. Right thyroid nodule. Please correlate with dedicated thyroid ultrasound, consider tissue sampling. Paranasal sinus disease as described. 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 COMMENTS: Consistent with the [employer] [employer]'s Incidental Findings Committee white paper (J [employer] Radiol 2015): In patients aged 35 years and older with an incidental thyroid nodule equal to or greater than 1.[address], MRI or extrathyroidal US, further evaluation with dedicated thyroid US is recommended for patients with normal life expectancy and without comorbidities. For smaller nodules without suspicious features, no further evaluation or follow up is recommended.
== END 2025-01-04 08:48 | disposition home or self-care (01) ==
LOC: RAD 08:49
PROVIDERS: PCP Family Medicine; Visit Provider Otolaryngology
DX: R07.0 Pain in throat (principal); R09.82 Postnasal drip; E04.1 Nontoxic single thyroid nodule; Z98.890 Other specified postprocedural states; J34.89 Other specified disorders of nose and nasal sinuses; J34.2 Deviated nasal septum; R93.89 Abnormal findings on diagnostic imaging of other specified body structures; J98.4 Other disorders of lung; J84.10 Pulmonary fibrosis, unspecified; R59.0 Localized enlarged lymph nodes; M47.892 Other spondylosis, cervical region
CPT/HCPCS: 70490

== ENCOUNTER → 2025-02-28 07:22 | Outpatient (BNVA) | payer MEDICARE, SELFPAY | PROVIDERS: PCP Family Medicine; Visit Provider Surgery | DX: R03.0 Elevated blood-pressure reading, without diagnosis of hypertension (principal) | CPT/HCPCS: 99203 ==

== ENCOUNTER → 2025-03-14 10:17 | Outpatient (BNVA) | payer MEDICARE, SELFPAY | PROVIDERS: PCP Family Medicine; Visit Provider Surgery | DX: L72.3 Sebaceous cyst (principal) | CPT/HCPCS: 99212 ==

== ENCOUNTER 2025-07-13 18:01 | Emergency (ER) | payer MEDICARE, SELFPAY ==
--- OUTSIDE RECORDS SUMMARY | 2025-07-10 07:15 | XMS_ITS ---
Author Organization [facility] Address [address] [place] [address] Care Team Providers Care Contact Officer Name Role Phone RAFA PARKER Unavailable [phone] HURSTCANDICE DAMIAN Unavailable [phone] Results Component Value Reference Range Notes Urinalysis, Routine Reviewed date:07/10/2025 01:15:36 PM Interpretation: Performing Lab: Notes/Report: Urine-Color yellow Appearance clear Glucose - Bilirubin - Ketones - Specific [place] 1.030 Occult Blood - pH 6.0 Urine Protein - Urobilinogen,Semi-Qn - Nitrite, Urine - WBC Esterase - REASON FOR VISIT 4 mo w/ ua/pvr/ipss Medications Medication SIG (Take, Route, Frequency, Duration) Notes Start Date End Date Status Tamsulosin HCl 0.4 MG 1 capsule Orally O nce a day; Duration: 90 days 07/11/2025 07/06/2026 Active amLODIPine Besylate Active Sulfamethoxazole-Trimetho prim 800-160 MG 1 tablet Orally twice a day; Duration: 14 days 07/11/2025 07/25/2025 Active Tamsulosin HCl 0.4 MG 1 capsule Orally O nce a day; Duration: 30 days 02/13/2025 02/08/2026 Active Social History Tobacco Use: Social History Observation Description Date Details (start date - stop date) Never Smoker NA - NA Tobacco Control (Standard) Question Answer Notes Tobacco use: Nonsmoker Vital Signs Blood pressure systolic 176 mm Hg 07/10/20 25 Blood pressure diastolic 87 mm Hg 025 Heart Rate 50 /min 07/10/2025 Height 59 in 07/10/2025 Weight 154 lbs 07/10/2025 BMI 31.1 kg/m2 07/10/2025 Height-cm 149.86 cm 07/10/2025 Weight-kg 69.85 kg 07/10/2025 Procedures Procedure Date Ordered Date Performed Result Body Sit e Bladder Scan 07/10/2025 07/10/2025 15ml Encounters Encounter Location Date Provider Diagnosis [facility] [address] [place] [address] 07/10/2025 CANDICE HURST BPH (benign prostati c hyperplasia) N40.0 ; Gross hematuria R31.0 ; Acute prostatitis N41.0 and Benign prostatic hyperplasia with lower urinary tract symptoms N40.1 Assessments Encounter Date Diagnosis (ICD Code) Assessment Notes Treatment Notes Treatment Clinical Notes Section Notes 07/10/2025 BPH (benign prostatic hyperplasia) (ICD-10 - N40.0) 89 yo male with gross hematuria and BPH. CT is normal from standpoint. 07/10/2025 Gross hematuria (ICD-10 - R31.0) 89 yo male with gross hematuria and BPH. CT is normal from standpoint. 07/10/2025 Acute prostatitis (ICD-10 - N41.0) 89 yo male with gross hematuria and BPH. CT is normal from standpoint. 07/10/2025 Benign prostatic hyperplasia with lower urinary tract symptoms (ICD-10 - N40.1) 89 yo male with gross hematuria and BPH. CT is normal from standpoint. Plan Of Treatment Medication Medication Name Sig Start Date Stop Date Notes Tamsulosin HCl 0.4 MG 1 capsule Orally O nce a day; Duration: 90 days 07/11/2025 07/06/2026 Sulfamethoxazole-Trimethopri m 800-160 MG 1 tablet Orally twice a day; Duration: 14 days 07/11/2025 07/25/2025 Next Appt Details Provider Name:CANDICE De Jesus, 09/14/2025 01:50:00 PM, [address] [place], [address], Progress Notes * Alen RIVERA NDOB:1935 ([age] yo M)Acc No.[id number]:07/10/2025 Progress Notes Patient: Chana MOOKIE Alen Thomas Provider: Buddy HURST MD :1935 A ge:89 Y S ex:Male Date:07/10/2025 Address:[address] [place] [address] [id number] Subjective: * Chief Complaints: * 1 . 4 mo w/ ua/pvr/ipss. * HPI: * : Pt is an 89yoM who is here for gross hematuria and LUTS. He says he has seen Dr. Kilpatrick in the past, >2 years ago. He also states he was seeing [facility] up until 3-4m ago. He says he went for gross hematuria and LUTS, but states he was not offered any treatment. His daughter is with him today. She says that she went with him to [facility] and prostate cancer was mention, but they both deny biopsy. Pt denies having any imaging or cystoscopy. He says he had a DREand he was told it was normal other than enlarged. He c/o weak slow stream with straining, hesitancy, intermittency. He has frequency, urgency, nocturia x 3. He c/o dysuria and pelvic discomfort. He reports intermittent gross hematuria over the last 6-12 months. Worse after mowing or riding on the tractor. C T on 03/17/25 N o evidence of nephrolithiasis or enhancing renal mass lesions.The ureters are normal appearing.There is a large prostate indenting the urinary bladder, but I do not see well-defined bladder wall lesions. If symptoms persist, endoscopic evaluation of the bladder may be helpful. Cysto on 03/27/25 s hows enlarged hypervascular prostate. Here today for 4m f/u with UA,PVR and IPSS. * Medical History: T hroat cancer, Heart disease, Hypertension. * Surgical History: B ack surgery (multiple times) 1968. * Hospitalization/Major Diagno stic Procedure: b ack surgery . * Family History: F ather: , Lung cancer. M other: , Myocardial infarction. * Social History: T obacco Use: T obacco Control (Standard) T obacco use: N onsmoker. * Medications: T aking amLODIPine Besylate , Taking Tamsulosin HCl 0.4 MG Capsule 1 capsule Orally Once a day , stop date 02/08/2026, Medication List reviewed and reconciled with the patient Objective: * Vitals: B P: 176/87 mm Hg, HR: 50 /min, Wt: 154 lbs, Wt-k.85 kg, Ht: 59 in, Ht-cm: 149.86 cm, BMI: 31.1 Index, Body Surface Area: 1.7. Assessment: * Assessment: 1. G ross hematuria - R31.0 (Primary) 2 . B PH (benign prostatic hyperplasia) - N40.0 3 . A cute prostatitis - N41.0 4 . B enign prostatic hyperplasia with lower urinary tract symptoms - N40.1 89 yo male with gross hematu gita and BPH. CT is normal from standpoint. Plan: * Treatment: Value Reference Range U rine-Color yellow * A ppearance clear * G lucose - * B ilirubin - * K etones - * S pecific [place] 1.030 * O ccult Blood - * p H 6.0 * U rine Protein - * U robilinogen,Semi-Qn - * N itrite, Urine - * W BC Esterase - ?Procedure: Bladder Scan (Performed Date - 07/10/2025)?15ml2.?Others? Start Tamsulosin HCl Capsule, 0.4 MG, 1 capsule, Orally, Once a day, 90 days, 90 Capsule, Refills 3;?Start Sulfamethoxazole-Trimethoprim Tablet, 800-160 MG, 1 tablet, Orally, twice a day, 14 days, 28 Tablet, Refills 0.?? * Procedure Codes: 8 1003 URINALYSIS, AUTO, W/O SCOPE, 45396 US URINE CAPACITY MEASURE * Billing Information: * Visit Code: * Procedure Codes: 55965 URINALYSIS, AUTO, W/O SCOPE. 51176 US URINE CAPACITY MEASURE. * Electronic signature of AUST IN MD ARIS on 07/13/2025 at 06:05 PM COMMUNICATIONS CONTROLLER Sign off status: Pending * Provider: Buddy HURST MD Date: 09/09/2024 Generated for Junior pollock/Maribel/Bethanyransmitting on: 09/12/2024 06:05 PM COMMUNICATIONS CONTROLLER History and Physical Notes * HPI (History of Present Illness) Category Sub-Category Detail Notes Category Not es Pt is an 89yoM who is here for gross hematuria and LUTS. He says he has seen Dr. Kilpatrick in the past, >2 years ago. He also states he was seeing [facility] up until 3-4m ago. He says he went for gross hematuria and LUTS, but states he was not offered any treatment. His daughter is with him today. She says that she went with him to [facility] and prostate cancer was mention, but they both deny biopsy. Pt denies having any imaging or cystoscopy. He says he had a DREand he was told it was normal other than enlarged. He c/o weak slow stream with straining, hesitancy, intermittency. He has frequency, urgency, nocturia x 3. He c/o dysuria and pelvic discomfort. He reports intermittent gross hematuria over the last 6-12 months. Worse after mowing or riding on the tractor. CT on 03/17/25 No evidence of nephrolithiasis or enhancing renal mass lesions.The ureters are normal appearing.There is a large prostate indenting the urinary bladder, but I do not see well-defined bladder wall lesions. If symptoms persist, endoscopic evaluation of the bladder may be helpful. Cysto on 03/27/25 shows enlarged hypervascular prostate. Here today for 4m f/u with UA,PVR and IPSS
[2025-07-13 18:05] VITALS: BP 147/73; PULSE 63; RESP 16; TEMP 36.6; O2SAT 94; BMI 21.4
--- OUTSIDE RECORDS SUMMARY | 2025-07-13 18:05 | XMS_ITS | Patient Health Record ---
Author Organization [employer] Address [address] [facility] [place] [address] Care Team Providers Care Shipper/Receiver Name Role Phone RAFA PARKER Unavailable [phone] CANDICE HURST Unavailable [phone] Allergies No Known Allergies Results Component Value Reference Range Notes Urinalysis, Routine Reviewed date:03/27/2025 03:47:43 PM Interpretation: Performing Lab: Notes/Report: Urine-Color yellow Appearance clear Glucose - Bilirubin - Ketones - Specific [place] 1.030 Occult Blood - pH 6.0 Urine Protein - Urobilinogen,Semi-Qn - Nitrite, Urine - WBC Esterase - Urinalysis, Routine Reviewed date:07/10/2025 01:15:36 PM Interpretation: Performing Lab: Notes/Report: Urine-Color yellow Appearance clear Glucose - Bilirubin - Ketones - Specific [place] 1.030 Occult Blood - pH 6.0 Urine Protein - Urobilinogen,Semi-Qn - Nitrite, Urine - WBC Esterase - Urinalysis, Routine Reviewed date:02/13/2025 10:10:46 AM Interpretation: Performing Lab: Notes/Report: Urine-Color Yellow Appearance slightly cloudy Glucose - Bilirubin - Ketones - Specific [place] 1.020 Occult Blood - pH 6.0 Urine Protein - Urobilinogen,Semi-Qn - Nitrite, Urine - WBC Esterase - Urinalysis Gross Exam - CT Abdomen, Pelvis w/ + w/o Contrast--[id number] Reviewed date:03/30/2025 01:00:49 PM Interpretation: Performing Lab: Notes/Report: See Below For Report CT Abdomen, Pelvis w/ + w/o Contrast Read See Below For Report Creat Proc NC Reviewed date:03/17/2025 10:03:21 AM Interpretation: Performing Lab: Notes/Report: Creat 1.08 .57-1.17 MG/DL N-yohjiw-x-benzoquinone imine (NAPQI) is a metabolite of acetaminophen, NAPQI concentrations of apparoximately 10 mg/L correlation to toxic levels of acetaminophen demonstrates a greater than or equil to 10% change in results. NAPQI concentrations greater than this may lead to falsely depressed results for patient samples. Use of this assay is not recommended for patients undergoing treatment with phenindione, due to the potential for falsely depressed results. Testing performed at: [address] [place] [address] CLIA ID [id number] BUN Proc NC Reviewed date:03/17/2025 10:03:24 AM Interpretation: Performing Lab: Notes/Report: BUN 13 7-21 MG/DL Testing perform ed at: [address] [place] [address] CLIA ID [id number] Reason For Referral No Information Medications Medication SIG (Take, Route, Frequency, Duration) [...] (Standard) Question Answer Notes Tobacco use: Nonsmoker AUDIT-C (Standard) Question Answer Notes Did you have a drink containing alcohol in the p ast year? No Points 0 Interpretation Negative Problems Problem Type SNOMED Code ICD Code Onset Dates Problem Status W/U Status Risk Notes Problem Gross hematuria (051447304) Gross hematuria (R31.0) Active confirmed Problem Lower urinary tract symptoms due to benign prostatic hypertrophy (21868201803698) Benign prostatic hyperplasia with lower urinary tract symptoms (N40.1) Active confirmed Problem Benign prostatic hyperplasia (891732602) BPH (benign prostatic hyperplasia) (N40.0) Active confirmed Vital Signs Heart Rate 50 /min 07/10/2025 Blood pressure diastolic 87 mm Hg 07/10/2025 Height-cm 149.86 cm 07/10/2025 Weight-kg 69.85 kg 07/10/2025 Height 59 in 07/10/2025 Blood pressure systolic 176 mm Hg 07/10/2025 Weight 154 lbs 07/10/2025 BMI 31.1 kg/m2 07/10/2025 Procedures Procedure Date Ordered Date Performed Result Body Sit e Bladder Scan 02/13/2025 02/13/2025 N/A Bladder Scan 07/10/2025 07/10/2025 15ml Encounters Encounter Location Date Provider Diagnosis [facility] [address] [facility] [address] [facility] [place] [address] 07/10/2025 CANDICE HURST BPH (benign prostati c hyperplasia) N40.0 ; Gross hematuria R31.0 ; Acute prostatitis N41.0 and Benign prostatic hyperplasia with lower urinary tract symptoms N40.1 [facility] [address] [facility] [address] [facility] [place] [address] 02/13/2025 RAFA PARKER Gross hematuria R31. 0 ; Acute prostatitis N41.0 and BPH (benign prostatic hyperplasia) N40.0 [facility] [address] [facility] [address] [facility] [place] [address] 03/27/2025 CANDICE HURST Gross hematuria R31. 0 ; Acute prostatitis N41.0 ; BPH (benign prostatic hyperplasia) N40.0 and Benign prostatic hyperplasia with lower urinary tract symptoms N40.1 [facility] [address] [facility] [place] [address] 02/13/2025 RAFA PARKER Assessments Encounter Date Diagnosis (ICD Code) Assessment Notes Treatment Notes Treatment Clinical Notes Section Notes 02/13/2025 Acute prostatitis (ICD-10 - N41.0) 02/13/2025 Gross hematuria (ICD-10 - R31.0) Pt with nearly 1 year history of intermittent gross hematuria. We discussed the indications and rationale for a hematuria workup including the possibility of malignancy causing hematuria. In terms of the workup specifically, we discussed the need for evaluation of the upper urinary tracts with radiologic imaging and the lower urinary tract with cystoscopy. We will set up the CT scan w/ and w/o contrast and delayed imaging per hematuria protocol. We will also schedule for next available cystoscopy. 07/10/2025 BPH (benign prostatic hyperplasia) (ICD-10 - N40.0) 89 yo male with gross hematuria and BPH. CT is normal from standpoint. 03/27/2025 Gross hematuria (ICD-10 - R31.0) 89 yo male with gross hematuria and BPH. CT is normal from standpoint. Cysto shows enlarged hypervascular prostate. CT and cysto findings reviewed with patient. HEmaturia is likely from his enlarged hypervascular prostate. Plan: RTC in 4 months with IPSS, PVR, and UA all questions answered 03/27/2025 Acute prostatitis (ICD-10 - N41.0) 89 yo male with gross hematuria and BPH. CT is normal from standpoint. Cysto shows enlarged hypervascular prostate. CT and cysto findings reviewed with patient. HEmaturia is likely from his enlarged hypervascular prostate. Plan: RTC in 4 months with IPSS, PVR, and UA all questions answered 07/10/2025 Gross hematuria (ICD-10 - R31.0) 89 yo male with gross hematuria and BPH. CT is normal from standpoint. 02/13/2025 BPH (benign prostatic hyperplasia) (ICD-10 - N40.0) Pt with severe LUTS and dysuria. Will start tamsulosin. Dosing and s/e reviewed. Will give Cipro to r/o prostatitis. Reassess at time of cystoscopy. 07/10/2025 Acute prostatitis (ICD-10 - N41.0) 89 yo male with gross hematuria and BPH. CT is normal from standpoint. 03/27/2025 BPH (benign prostatic hyperplasia) (ICD-10 - N40.0) 89 yo male with gross hematuria and BPH. CT is normal from standpoint. Cysto shows enlarged hypervascular prostate. CT and cysto findings reviewed with patient. HEmaturia is likely from his enlarged hypervascular prostate. Plan: RTC in 4 months with IPSS, PVR, and UA all questions answered 03/27/2025 Benign prostatic hyperplasia with lower urinary tract symptoms (ICD-10 - N40.1) 89 yo male with gross hematuria and BPH. CT is normal from standpoint. Cysto shows enlarged hypervascular prostate. CT and cysto findings reviewed with patient. HEmaturia is likely from his enlarged hypervascular prostate. Plan: RTC in 4 months with IPSS, PVR, and UA all questions answered 07/10/2025 Benign prostatic hyperplasia with lower urinary tract symptoms (ICD-10 - N40.1) 89 yo male with gross hematuria and BPH. CT is normal from standpoint. 02/13/2025 Other Pt reports being seen by [facility] recently as well as Dr. Kilpatrick in the last several years. Will request records from both locations for review. Plan Of Treatment Pending Test Test Name Order Date CT Abd & Pelvis W & [place] contrast [id number] 02/13/2025 Blood Urea Nitrogen (BUN) 02/13/2025 Creatinine Serum 02/13/2025 Next Appt Details Provider Name:CANDICE De Jesus, 09/14/2025 01:50:00 PM, [address] [place], [address], Insurance Providers Payer Name Payer Address Payer Phone Subscriber Number Group Number Insured Name Patient Relationship to Insured Coverage Start Date Coverage End Date [facility] Medicare Advantage PPO [address] [address] [place], [place] [id number] Alen Rivera Self - patient is the insured Medical (General) History Medical History History ICD Code Throat cancer Heart disease Hypertension Surgical History Surgery Date(Month/Year) Back surgery (multiple times) 1968 Hospitalization History Reason Date(Month/Year) back surgery
--- OUTSIDE RECORDS SUMMARY | 2025-07-13 18:06 | XMS_ITS | Encounter Summary ---
Author Organization [facility] Address [address] [place] [address] Care Team Providers Care Button Machine Operator Name Role Phone Duarte Rodriguez MD Primary Care Provider [phone] Encounter Details Date Type Department Care Team (Latest Contact Info) Description 09/23/2007 Outpatient Historical [facility] [place] [address] [place] [address] Ike Elizondo MD NO ADDRESS ON FILE Stricture and Stenosis of Esophagus; Other Specified Disorder of the Esophagus; Diverticulum of Esophagus, Acquired; Duodenal Ulcer; Duodenitis without Mention of Hemorrhage; Personal History of Other Malignant Neoplasm of Skin; Personal History of Allergy to Other Specified Medicinal Agents Social History Tobacco Use Types Packs/Day Years Used Date Smoking Tobacco: Never Assessed Sex and Gender Information Value Date Recorded Sex Assigned at Not on file 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 Gender Identity Not on file Sexual Orientation Not on file documented as of this encounter Plan of Treatment Not on file documented as of this encounter Visit Diagnoses Diagnosis Stricture and stenosis of esophagus Other specified disorder of the esophagus Diverticulum of esophagus, acquired Duodenal ulcer, unspecified as acute or chronic, without hemorrhage, perforation, or obstruction Duodenitis without mention of hemorrhage Personal history of other malignant neoplasm of skin Personal history of allergy to other specified medicinal agents documented in this encounter Care Teams Button Machine Operator Relationship Specialty Start Date End Date Duarte Rodriguez MD [facility] [place] [address] PCP - General 10/05/07 documented as of this encounter
--- OUTSIDE RECORDS SUMMARY | 2025-07-13 18:06 | XMS_ITS | Encounter Summary ---
Author Organization [facility] Address [address] [place] [address] Care Team Providers Care Work From Home Name Role Phone Duarte Rodriguez MD Primary Care Provider [phone] Encounter Details Date Type Department Care Team (Latest Contact Info) Description 10/20/2000 Outpatient Historical [facility] Ear, Nose [facility] Th[facility] [address] [place] 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
--- OUTSIDE RECORDS SUMMARY | 2025-07-13 18:06 | XMS_ITS | Encounter Summary ---
Author Organization [facility] Address [address] [place] [address] Care Team Providers Care Glass Designer Name Role Phone Duarte Rodriguez MD Primary Care Provider [phone] Encounter Details Date Type Department Care Team (Latest Contact Info) Description 11/21/2002 Outpatient Historical [facility] Endoscopy [address] 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
--- OUTSIDE RECORDS SUMMARY | 2025-07-13 18:06 | XMS_ITS | Encounter Summary ---
Author Organization [employer] [facility] Address [address] [facility] [place] [address] Care Team Providers Care Associate Professor Of Church Music Name Role Phone Duarte Rodriguez MD Primary Care Provider Encounter Details Date Type Department Care Team (Latest Contact Info) Description 07/10/1999 Outpatient Historical [facility] Chang Azevedo MD [address] [facility] [address] [place] [address] Need vaccination-viral disease (Primary Dx) Social History Tobacco Use Types Packs/Day Years Used Date Smoking Tobacco: Never Assessed Sex and Gender Information Value Date Recorded Sex Assigned at Not on file 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
--- OUTSIDE RECORDS SUMMARY | 2025-07-13 18:06 | XMS_ITS | Encounter Summary ---
Author Organization [facility] Address [address] [place] [address] Care Team Providers Care In Home Tutor Name Role Phone Duarte Rodriguez MD Primary Care Provider [phone] Encounter Details Date Type Department Care Team (Latest Contact Info) Description 11/27/2003 Outpatient [facility] [address] [place] [address] Duarte Rodriguez MD [address] [place] [address] PROSTATITIS NOS (Primary Dx) Social History Tobacco Use Types Packs/Day Years Used Date Smoking Tobacco: Never Assessed Sex and Gender Information Value Date Recorded Sex Assigned at Not on file 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
--- OUTSIDE RECORDS SUMMARY | 2025-07-13 18:06 | XMS_ITS | Encounter Summary ---
Author Organization [facility] Address [address] 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
--- OUTSIDE RECORDS SUMMARY | 2025-07-13 18:06 | XMS_ITS | Encounter Summary ---
Author Organization [facility] Address [address] [place] [address] Care Team Providers Care Sleeping Car Service Attendant Name Role Phone Duarte Rodriguez MD Primary Care Provider [phone] Encounter Details Date Type Department Care Team (Late st Contact Info) Description 02/12/2003 Emergency [facility] Emergency Department [address] [place] [address] Jose Almazan MD FOREIGN BODY ESOPHAGUS (Primary Dx) Social History Tobacco Use Types Packs/Day Years Used Date Smoking Tobacco: Never Assessed Sex and Gender Information Value Date Recorded Sex Assigned at Not on file 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
--- OUTSIDE RECORDS SUMMARY | 2025-07-13 18:06 | XMS_ITS | Encounter Summary ---
Author Organization [facility] Address [address] [place] [address] Care Team Providers Care Waste Elimination Name Role Phone Duarte Rodriguez MD Primary Care Provider [phone] Encounter Details Date Type Department Care Team (Latest Contact Info) Description 11/03/[address] 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
--- OUTSIDE RECORDS SUMMARY | 2025-07-13 18:06 | XMS_ITS | Encounter Summary ---
Author Organization [facility] Address [address] [place] [address] Care Team Providers Care Construction Plant Operator Name Role Phone Duarte Rodriguez MD Primary Care Provider Encounter Details Date Type Department Care Team (Latest Contact Info) Description 11/27/2003 Outpatient [facility] [address] [place] [address] Duarte Rodriguez MD [address] [place] [address] PROSTATITIS NOS (Primary Dx) Social History Tobacco Use Types Packs/Day Years Used Date Smoking Tobacco: Never Assessed Sex and Gender Information Value Date Recorded Sex Assigned at Not on file Legal Sex Male 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
--- OUTSIDE RECORDS SUMMARY | 2025-07-13 18:06 | XMS_ITS | Encounter Summary ---
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
--- OUTSIDE RECORDS SUMMARY | 2025-07-13 18:06 | XMS_ITS | Clinical Summary ---
Author Organization [facility] Address [address] [place] [address] Phone Care Team Providers Care Bulk Coolers Installer Name Role Phone Duarte Rodriguez MD Primary Care Provider [phone] Allergies Active Allergy Reactions Criticality Noted Date Comments Amoxicillin-Pot Clavulanate Nausea and Vomiting Low 12/13/2020 Ciprofloxacin Nausea and Vomiting Low 12/13/2020 Cortisone Other (See Comments) 02/23/2008 Face and eyes turned black Gabapentin Nausea and Vomiting Low 12/13/2020 Levofloxacin Nausea and Vomiting Low 12/13/2020 Sulfa (Sulfonamide Antibiotics) Nausea and Vomiting Low 12/13/2020 Medications IMODIUM A-D 2 mg Oral Tab Take 2 mg by mouth 2 times daily. Active tamsulosin (FLOMAX) 0.4 mg capsule TAKE 1 CAPSULE BY MOUTH ONCE DAILY 1 2 HOUR FOLLOWING THE SAME MEAL EACH DAY Active Active Problems Problem Noted Date Diagnosed Date Pharyngoesophageal dysphagia 12/27/2020 Arrhythmia 03/28/2010 Immunizations Immunization Administration Dates Next Due Influenza Seasonal Unspecifi ed Formulation IM 07/08/2005,06/14/2004,07/10/1999 Social History Tobacco Use Types Packs/Day Years Used Date Smoking Tobacco: Never Smokeless Tobacco: Never Tobacco Cessation:Counseling Given: No Sex and Gender Information Value Date Recorded Sex Assigned at Not on file Legal Sex Male 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 Gender Identity Not on file Sexual Orientation Not on file Last Filed Vital Signs Vital Sign Reading Time Taken Comments Blood Pressure 158/84 01/30/2021 2:50 PM CDT Pulse 73 01/30/2021 2:50 PM CDT Temperature 36.5 C (97.7 F) 01/13/2021 9:34 PM CDT Respiratory Rate 20 01/30/2021 2:50 PM CDT Oxygen Saturation 93% 01/30/2021 2:50 PM CDT Inhaled Oxygen Concentration - - Weight 78.5 kg (173 lb) 01/23/2021 1:00 PM CDT Height 175.3 cm (5' 9 ) 01/14/2021 4:17 AM CDT Body Mass Index 25.55 01/14/2021 4:17 AM CDT Plan of Treatment Health Maintenance Due Date Last Done Comments PNEUMOCOCCAL VACCINE 50+ YEA RS (1 of 1 - PCV) 1986 ZOSTER VACCINE (1 of 2) 1986 RSV VACCINE (60+ or ) (1 - 1-dose 75+ series) 2011 INFLUENZA VACCINE (#1) 2025 5, 06/14/2004, 07/10/1999 DTAP/TDAP/TD VACCINES (3 - T d or Tdap) 07/20/2034 07/20/2024, 05/17/2024 Insurance [facility] Advance Directives For more information, please contact: [phone] * Full Code (Latest Code Status on File) Date Activated Date Inactivated Comments 01/30/2021 1:24 PM 01/30/2021 5:00 PM Care Teams Bulk Coolers Installer Relationship Specialty Start Date End Date Duarte Rodriguez MD [address] [place] [address] PCP - General 10/05/07
--- OUTSIDE RECORDS SUMMARY | 2025-07-13 18:06 | XMS_ITS | Encounter Summary ---
Author Organization [facility] Address [address] [place] [address] Care Team Providers Care Mold Construction Supervisor Name Role Phone Duarte Rodriguez MD Primary Care Provider [phone] Encounter Details Date Type Department Care Team (Late st Contact Info) Description 10/05/2007 Outpatient [facility] Gastroenterology[address] [place] [address] Ike Elizondo MD NO ADDRESS ON FILE Social History Tobacco Use Types Packs/Day Years Used Date Smoking Tobacco: Never Assessed Sex and Gender Information Value Date Recorded Sex Assigned at Not on file Legal Sex Male 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
--- OUTSIDE RECORDS SUMMARY | 2025-07-13 18:06 | XMS_ITS | Encounter Summary ---
Author Organization [facility] Address [address] [place] [address] Care Team Providers Care Forensic Dna Analyst Name Role Phone Duarte Rodriguez MD Primary Care Provider Encounter Details Date Type Department Care Team (Latest Contact Info) Description 03/14/1998 Outpatient Historical [facility] General and Trauma Surgery-[address] [place] [address] Scout Hamilton MD NO ADDRESS ON FILE Sebaceous cyst (Primary Dx) Social History Tobacco Use Types Packs/Day Years Used Date Smoking Tobacco: Never Assessed Sex and Gender Information Value Date Recorded Sex Assigned at Not on file 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
--- OUTSIDE RECORDS SUMMARY | 2025-07-13 18:06 | XMS_ITS | Encounter Summary ---
Author Organization [facility] Address [address] [place] [address] Care Team Providers Care Manager Hiv Name Role Phone Duarte Rodriguez MD Primary Care Provider Encounter Details Date Type Department Care Team (Latest Contact Info) Description 03/25/2005 Outpatient Historical [facility] [address] [place] [address] Duarte Rodriguez MD [address] [place] [address] HEMOPTYSIS (Primary Dx) Social History Tobacco Use Types Packs/Day Years Used Date Smoking Tobacco: Never Assessed Sex and Gender Information Value Date Recorded Sex Assigned at Not on file Legal Sex Male 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
--- OUTSIDE RECORDS SUMMARY | 2025-07-13 18:06 | XMS_ITS | Encounter Summary ---
Author Organization [facility] Address [address] [place] [address] Care Team Providers Care Synthetic Plasterer Name Role Phone Duarte Rodriguez MD Primary Care Provider [phone] Encounter Details Date Type Department Care Team (Latest Contact Info) Description 01/25/2007 Outpatient [facility] Gastroenterology[address] [place] [address] Ike Elizondo MD NO ADDRESS ON FILE Esophageal Stricture (Primary Dx); Dysphagia Social History Tobacco Use Types Packs/Day Years Used Date Smoking Tobacco: Never Assessed Sex and Gender Information Value Date Recorded Sex Assigned at Not on file Legal Sex Male 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
--- OUTSIDE RECORDS SUMMARY | 2025-07-13 18:06 | XMS_ITS | Encounter Summary ---
Author Organization [facility] Address [address] [place] [address] Care Team Providers Care Ritual Circumciser Name Role Phone Duarte Rodriguez MD Primary Care Provider Encounter Details Date Type Department Care Team (Latest Contact Info) Description 07/08/2005 Outpatient [facility] [address] [place] [address] Duarte Rodriguez MD [address] [place] [address] Vaccine for influenza (Primary Dx) Social History Tobacco Use Types Packs/Day Years Used Date Smoking Tobacco: Never Assessed Sex and Gender Information Value Date Recorded Sex Assigned at Not on file Legal 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
--- OUTSIDE RECORDS SUMMARY | 2025-07-13 18:06 | XMS_ITS | Encounter Summary ---
Author Organization [facility] Address [address] [place] [address] Care Team Providers Care Picker Operator Name Role Phone Duarte Rodriguez MD Primary Care Provider [phone] Encounter Details Date Type Department Care Team (Latest Contact Info) Description 07/02/2004 Outpatient [facility] [address] [place] [address] Duarte Rodriguez MD [address] [place] [address] NEURALGIA/NEURITIS NOS (Primary Dx) Social History Tobacco Use Types Packs/Day Years Used Date Smoking Tobacco: Never Assessed Sex and Gender Information Value Date Recorded Sex Assigned at Not on file Legal 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
--- OUTSIDE RECORDS SUMMARY | 2025-07-13 18:06 | XMS_ITS | Encounter Summary ---
Author Organization [facility] Address [address] [place] [address] Care Team Providers Care Cookee Name Role Phone Duarte Rodriguez MD Primary Care Provider [phone] Encounter Details Date Type Department Care Team (Latest Contact Info) Description 10/23/2003 Outpatient [facility] [address] [place] [address] Duarte Rodriguez MD [address] [place] [address] BRONCHITIS NOS (Primary Dx) Social History Tobacco Use Types Packs/Day Years Used Date Smoking Tobacco: Never Assessed Sex and Gender Information Value Date Recorded Sex Assigned at Not on file 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
--- OUTSIDE RECORDS SUMMARY | 2025-07-13 18:06 | XMS_ITS | Encounter Summary ---
Author Organization [facility] Address [address] [place] [address] Care Team Providers Care Real Estate Assistant Name Role Phone Duarte Rodriguez MD Primary Care Provider [phone] Encounter Details Date Type Department Care Team (Latest Contact Info) Description 11/21/2002 Outpatient [facility] Gastroenterology[address] [place] [address] Hima Regalado MD [address] [facility] [address] [place] [address] MELENA, BLOOD IN STOOL (Primary Dx) Social History Tobacco Use Types Packs/Day Years Used Date Smoking Tobacco: Never Assessed Sex and Gender Information Value Date Recorded Sex Assigned at Not on file Legal Sex Male 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
--- OUTSIDE RECORDS SUMMARY | 2025-07-13 18:06 | XMS_ITS | Encounter Summary ---
Author Organization [facility] Address [address] [place] [address] Care Team Providers Care Yeast Pusher Name Role Phone Duarte Rodriguez MD Primary Care Provider Encounter Details Date Type Department Care Team (Late st Contact Info) Description 11/27/2003 Outpatient Historical [facility] [address] [place] [address] Duarte Rodriguez MD [address] [place] [address] Social History Tobacco Use Types Packs/Day Years Used Date Smoking Tobacco: Never Assessed Sex and Gender Information Value Date Recorded Sex Assigned at Not on file Legal Sex Male 5:09 AM SVP Gender Identity Not on file Sexual Orientation Not on file documented as of this encounter Plan of Treatment Not on file documented as of this encounter Visit Diagnoses Not on filedocumented in this encounter Care Teams Yeast Pusher Relationship Specialty Start Date End Date Duarte Rodriguez MD [address] [place] [address] PCP - General 10/05/07 documented as of this encounter
--- OUTSIDE RECORDS SUMMARY | 2025-07-13 18:06 | XMS_ITS | Encounter Summary ---
Author Organization [facility] Address [address] [place] [address] Care Team Providers Care Mobile Phone Salesperson Name Role Phone Duarte Rodriguez MD Primary Care Provider [phone] Encounter Details Date Type Department Care Team (Late st Contact Info) Description 10/31/2002 Emergency [facility] Emergency Department [address] [place] [address] Andres Clifton DO NO ADDRESS ON FILE ABDOMINAL PAIN OTHER SPEC SITE (Primary Dx) Social History Tobacco Use Types Packs/Day Years Used Date Smoking Tobacco: Never Assessed Sex and Gender Information Value Date Recorded Sex Assigned at Not on file Legal Sex Male 5:09 AM MOBILE DISC JOCKEY Gender Identity Not on file Sexual Orientation Not on file documented as of this encounter Plan of Treatment Not on file documented as of this encounter Visit Diagnoses Diagnosis Abdominal pain, other specified site- Primary documented in this encounter Care Teams Mobile Phone Salesperson Relationship Specialty Start Date End Date Duarte Rodriguez MD [address] [place] [address] PCP - General 10/05/07 documented as of this encounter
--- OUTSIDE RECORDS SUMMARY | 2025-07-13 18:06 | XMS_ITS | Encounter Summary ---
Author Organization [facility] Address [address] [place] [address] Care Team Providers Care Umbrella Cutter Name Role Phone Duarte Rodriguez MD Primary Care Provider [phone] Encounter Details Date Type Department Care Team (Latest Contact Info) Description 11/11/2002 Outpatient [facility] [address] [place] [address] Matthieu Davis MD NO ADDRESS ON FILE ABDOMINAL PAIN UNSPEC SITE (Primary Dx) Social History Tobacco Use Types Packs/Day Years Used Date Smoking Tobacco: Never Assessed Sex and Gender Information Value Date Recorded Sex Assigned at Not on file Legal Sex Male 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
--- OUTSIDE RECORDS SUMMARY | 2025-07-13 18:06 | XMS_ITS | Encounter Summary ---
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) Social History Tobacco Use Types Packs/Day Years Used Date Smoking Tobacco: Never Assessed Sex and Gender Information Value Date Recorded Sex Assigned at Not on file 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 Gender Identity Not on file Sexual Orientation Not on file documented as of this encounter Plan of Treatment Not on file documented as of this encounter Results * ECHO COMPLETE (02/12/2010 8:34 AM CDT) 02/12/2010 8:01 AM CDT Narrative INTERFACE SYSTEM - 02/12/2010 9:17 AM CDT [facility] - Cardiology [address] [place] [address] Transthoracic Echocardiography Patient: Alen Rivera Study ID: Echo-Complete Ad Gender: M : 1935 Age: 74 Room: Study Date: 02/12/2010 Pt Status: Outpatient Study Time: 08:01 AM Ordering:Huy Kennedy Interpreting:Eriberto Solano MD Special Education Preschool Teacher: Liv Flores Indications and History: No prior cardiac history. 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 Procedure information: No prior study was available for comparison. Study status: Routine. Procedure: Transthoracic echocardiography. Image quality was adequate. Scanning was performed from the parasternal, apical, subcostal, and suprasternal notch acoustic windows. Study components: M-mode, complete 2D, complete spectral Doppler, and color Doppler. Height: Height: 175.3cm. Height: 69in. Weight: Weight: 86.6kg. Weight: 190.6lb. Body mass index: BMI: 28.2kg/m^2. Body surface area: BSA: 2.03m^2. Patient status: Outpatient. Location: Echo laboratory. Summary and Conclusion: - Left ventricle: The cavity size was normal. Wall thickness was increased in a pattern of mild LVH. Systolic function was normal. Calculated EF by MOD was 59%. Wall motion was normal; there were no regional wall motion abnormalities. Left ventricular diastolic function parameters were normal for the patient's age. - Right ventricle: The cavity size was dilated. Systolic function was normal. Systolic pressure was within the normal range. RV systolic pressure: 40mm Hg (S, est). - Left atrium: The atrium was moderately dilated. Volume: 73ml (S). Volume index: 36ml/m^2 (S). - Right atrium: The atrium was dilated. - Mitral valve: Trivial regurgitation. - Tricuspid valve: Mild regurgitation. - Pulmonic valve: Mild regurgitation. Cardiac Anatomy: LEFT VENTRICLE: The cavity size was normal. Wall thickness was increased in a pattern of mild LVH. Systolic function was normal. Calculated EF by MOD was 59%. Wall motion was normal; there were no regional wall motion abnormalities. Left ventricular diastolic function parameters were normal for the patient's age. RIGHT VENTRICLE: The cavity size was dilated. Systolic function was normal. Systolic pressure was within the normal range. LEFT ATRIUM: The atrium was moderately dilated. RIGHT ATRIUM: The atrium was dilated. ATRIAL SEPTUM: There was no atrial level shunt. AORTIC VALVE: Trileaflet; normal thickness leaflets. Mobility was not restricted. Doppler: There was no stenosis. No significant regurgitation. MITRAL VALVE: Structurally normal valve. Mobility was not restricted. No echocardiographic evidence for prolapse. Doppler: There was no evidence for stenosis. Trivial regurgitation. TRICUSPID VALVE: Structurally normal valve. Mobility was not restricted. Doppler: There was no evidence for stenosis. Mild regurgitation. PULMONIC VALVE: Not well visualized. Doppler: There was no evidence for stenosis. Mild regurgitation. PERICARDIUM: There was no pericardial effusion. AORTA: Aortic root: The visualized portion of the aortic root was normal in size. Aortic arch: The visualized portion of the aortic arch was normal in size. SYSTEMIC VEINS: Inferior vena cava: The vessel was normal in size. INTRACARDIAC MASS THROMBUS: No intracavitary masses or thrombi detected. 2D measurements Normal Range Left ventricle LVID ED, chord, PLAX 51.8 mm 43-52 LVID ES, chord, PLAX 33.6 mm 23-38 FS, chord, PLAX 35 % >29 Major axis ED, A4C 82.8 mm 63-95 Major axis ES, A4C 73.2 mm 46-85 Area ED, A4C 33.07 cm^2 17.7-47.3 Area ES, A4C 18.99 cm^2 7.9-31.5 FAC, A4C 43 % Major axis ED, A2C 83.3 mm 68-95 Major axis ES, A2C 70.4 mm 44-78 LVPW, ED 12.3 mm IVS/LVPW ratio, ED 0.98 <1.3 Vol ED, MOD1 111.2 ml Vol ES, MOD1 42 ml HR, MOD1 60 bpm EF, MOD1 62.2 % Stroke vol, MOD1 69.2 ml Cardiac output, MOD1 4.2 L/min Vol index, ED, MOD1 55 ml/m^2 Vol index, ES, MOD1 21 ml/m^2 Cardiac index, MOD1 2.1 L/(min-m^2) Stroke index, MOD1 34.1 ml/m^2 Vol ED, MOD2 106.1 ml Vol ES, MOD2 43.4 ml EF, MOD2 59.1 % Stroke vol, MOD2 62.7 ml Vol index, ED, MOD2 52 ml/m^2 Vol index, ES, MOD2 21 ml/m^2 Stroke index, MOD2 30.9 ml/m^2 Ventricular septum IVS, ED 12 mm Aorta Root diam, ED 33 mm Left atrium AP dim ES, PLAX *43 mm 23-38 SI dim ES, PLAX *68.2 mm 31-68 Area ES, A4C *24.41 cm^2 8.8-23.4 Vol, S 73 ml Vol index, S 36 ml/m^2 Right ventricle RVID ED, PLAX 33.5 mm 19-38 Doppler measurements Normal Range Main pulmonary artery Pressure, S *40 mm Hg =30 Left ventricle IVRT *142 ms 60-100 Aortic valve Peak jamie, S 128 cm/s Mitral valve Peak E jamie 37 cm/s Peak A jamie 68 cm/s Deceleration time *474 ms 150-230 Peak E/A ratio 0.54 Tricuspid valve Regurg peak jamie 273 cm/s Peak RV-RA gradient, S 30 mm Hg Right ventricle Pressure, S *40 mm Hg <30 Legend: Mean values are shown as u=mean value. Asterisk (*) mckinnon values outside specified normal range. [facility] is accredited with the [employer] Commission for the Accreditation of Echocardiography Laboratories (ICAEL) Prepared and Electronically Authenticated Eriberto Solano MD Confirmed 02/12/2010 09:16 Procedure Note Eriberto Solano MD - 02/12/2010 [facility] - Cardiology [address] [place] [address] Transthoracic Echocardiography Patient: Alen Rivera Study ID: Echo-Complete Ad Gender: M : 1935 Age: 74 Room: Study Date: 02/12/2010 Pt Status: Outpatient Study Time: 08:01 AM Ordering:Huy Kennedy Interpreting:Eriberto Solano MD Special Education Preschool Teacher: Liv Flores Indications and History: No prior cardiac history. Cerebral embolismwith cerebral infarct 434.11. Procedure information: No prior study was available for comparison.Study status: Routine. Procedure: Transthoracic echocardiography. Imagequality was adequate. Scanning was performed from the parasternal, apical, subcostal, and suprasternal notch acoustic windows. Study components: M-mode, complete 2D, complete spectral Doppler, and color Doppler.Height: Height: 175.3cm. Height: 69in. Weight: Weight: 86.6kg. Weight: 190.6lb. Body mass index: BMI: 28.2kg/m^2. Body surface area: BSA: 2.03m^2.Patient status: Outpatient. Location: Echo laboratory. Summary and Conclusion: - Left ventricle: The cavity size was normal. Wall thickness wasincreased in a pattern of mild LVH. Systolic function was normal. Calculated EFby MOD was 59%. Wall motion was normal; there were no regional wallmotion abnormalities. Left ventricular diastolic function parameters werenormal for the patient's age. - Right ventricle: The cavity size was dilated. Systolic function was normal. Systolic pressure was within the normal range. RV systolic pressure: 40mm Hg (S, est). - Left atrium: The atrium was moderately dilated. Volume: 73ml (S).Volume index: 36ml/m^2 (S). - Right atrium: The atrium was dilated. - Mitral valve: Trivial regurgitation. - Tricuspid valve: Mild regurgitation. - Pulmonic valve: Mild regurgitation. Cardiac Anatomy: LEFT VENTRICLE: The cavity size was normal. Wall thickness was increasedin a pattern of mild LVH. Systolic function was normal. Calculated EF byMOD was 59%. Wall motion was normal; there were no regional wall motion abnormalities. Left ventricular diastolic function parameters werenormal for the patient's age. RIGHT VENTRICLE: The cavity size was dilated. Systolic function wasnormal. Systolic pressure was within the normal range. LEFT ATRIUM: The atrium was moderately dilated. RIGHT ATRIUM: The atrium was dilated. ATRIAL SEPTUM: There was no atrial level shunt. AORTIC VALVE: Trileaflet; normal thickness leaflets. Mobility was not restricted. Doppler: There was no stenosis. No significantregurgitation. MITRAL VALVE: Structurally normal valve. Mobility was not restricted. No echocardiographic evidence for prolapse. Doppler: There was no evidencefor stenosis. Trivial regurgitation. TRICUSPID VALVE: Structurally normal valve. Mobility was not restricted. Doppler: There was no evidence for stenosis. Mild regurgitation. PULMONIC VALVE: Not well visualized. Doppler: There was no evidence for stenosis. Mild regurgitation. PERICARDIUM: There was no pericardial effusion. AORTA: Aortic root: The visualized portion of the aortic root was normalin size. Aortic arch: The visualized portion of the aortic arch was normal insize. SYSTEMIC VEINS: Inferior vena cava: The vessel was normal in size. INTRACARDIAC MASS THROMBUS: No intracavitary masses or thrombi detected. 2D measurements Normal Range Left ventricle LVID ED, chord, PLAX 51.8 mm 43-52 LVID ES, chord, PLAX 33.6 mm 23-38 FS, chord, PLAX 35 % >29 Major axis ED, A4C 82.8 mm 63-95 Major axis ES, A4C 73.2 mm 46-85 Area ED, A4C 33.07 cm^2 17.7-47.3 Area ES, A4C 18.99 cm^2 7.9-31.5 FAC, A4C 43 % Major axis ED, A2C 83.3 mm 68-95 Major axis ES, A2C 70.4 mm 44-78 LVPW, ED 12.3 mm IVS/LVPW ratio, ED 0.98 <1.3 Vol ED, MOD1 111.2 ml Vol ES, MOD1 42 ml HR, MOD1 60 bpm EF, MOD1 62.2 % Stroke vol, MOD1 69.2 ml Cardiac output, MOD1 4.2 L/min Vol index, ED, MOD1 55 ml/m^2 Vol index, ES, MOD1 21 ml/m^2 Cardiac index, MOD1 2.1 L/(min-m^2) Stroke index, MOD1 34.1 ml/m^2 Vol ED, MOD2 106.1 ml Vol ES, MOD2 43.4 ml EF, MOD2 59.1 % Stroke vol, MOD2 62.7 ml Vol index, ED, MOD2 52 ml/m^2 Vol index, ES, MOD2 21 ml/m^2 Stroke index, MOD2 30.9 ml/m^2 Ventricular septum IVS, ED 12 mm Aorta Root diam, ED 33 mm Left atrium AP dim ES, PLAX *43 mm 23-38 SI dim ES, PLAX *68.2 mm 31-68 Area ES, A4C *24.41 cm^2 8.8-23.4 Vol, S 73 ml Vol index, S 36 ml/m^2 Right ventricle RVID ED, PLAX 33.5 mm 19-38 Doppler measurements Normal Range Main pulmonary artery Pressure, S *40 mm Hg =30 Left ventricle IVRT *142 ms 60-100 Aortic valve Peak jamie, S 128 cm/s Mitral valve Peak E jamie 37 cm/s Peak A jamie 68 cm/s Deceleration time *474 ms 150-230 Peak E/A ratio 0.54 Tricuspid valve Regurg peak jamie 273 cm/s Peak RV-RA gradient, S 30 mm Hg Right ventricle Pressure, S *40 mm Hg <30 Legend: Mean values are shown as u=mean value. Asterisk (*) mckinnon values outside specified normal range. [facility] is accredited with the [facility] Commission for the Accreditation of Echocardiography Laboratories (ICAEL) Prepared and Electronically Authenticated Eriberto Solano MD Confirmed 02/12/2010 09:16 us Huy Kennedy MD US ORDERABLES Final Result Performing Organization Address City/State/[facility] [place] Phone Number INTERFACE SYSTEM Refer to clinic/hospital department documented in this encounter Visit Diagnoses Diagnosis Unspecified cerebral artery occlusion with cerebral infarction documented in this encounter Care Teams Human Anatomy Teacher Relationship Specialty Start Date End Date Duarte Rodriguez MD [address] [place] [address] PCP - General 10/05/07 documented as of this encounter
--- OUTSIDE RECORDS SUMMARY | 2025-07-13 18:06 | XMS_ITS | Encounter Summary ---
Author Organization [facility] Address [address] [place] [address] Care Team Providers Care Insulation Worker Interior Surface Name Role Phone Duarte Rodriguez MD Primary Care Provider [phone] Encounter Details Date Type Department Care Team (Latest Contact Info) Description 01/25/2007 Outpatient Historical [facility] End[facility] [place] [address] [place] [address] Ike Elizondo MD NO ADDRESS ON FILE Other Specified Disorder of the Esophagus (Primary Dx) Social History Tobacco Use Types Packs/Day Years Used Date Smoking Tobacco: Never Assessed Sex and Gender Information Value Date Recorded Sex Assigned at Not on file Legal Sex Male 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
--- OUTSIDE RECORDS SUMMARY | 2025-07-13 18:06 | XMS_ITS | Encounter Summary ---
Author Organization [facility] Address [address] [facility] [address]: [place] [address] Care Team Providers Care Children Counselor Name Role Phone Duarte Rodriguez MD Primary Care Provider Encounter Details Date Type Department Care Team (Late st Contact Info) Description 10/12/1999 Outpatient Historical Shawn Martinez MD [address] [place] [id number] Social History Tobacco Use Types Packs/Day Years Used Date Smoking Tobacco: Never Assessed Sex and Gender Information Value Date Recorded Sex Assigned at Not on file Legal Sex Male 5:09 AM CERTIFIED MEDICAL CODING SPECIALIST Gender Identity Not on file Sexual Orientation Not on file documented as of this encounter Plan of Treatment Not on file documented as of this encounter Visit Diagnoses Not on filedocumented in this encounter Care Teams Children Counselor Relationship Specialty Start Date End Date Duarte Rodriguez MD [address] [place] [address] PCP - General 10/05/07 documented as of this encounter
--- OUTSIDE RECORDS SUMMARY | 2025-07-13 18:06 | XMS_ITS | Encounter Summary ---
Author Organization [facility] Address [address] [place] [facility] [place] [address] Care Team Providers Care Reimbursement Specialist Name Role Phone Duarte Rodriguez MD Primary Care Provider Encounter Details Date Type Department Care Team (Latest Contact Info) Description 03/06/1998 Outpatient Historical [facility] Chang Azevedo MD [address] [facility] [address] [place] [address] Enthesopathy of knee, unspecified (Primary Dx) Social History Tobacco Use Types Packs/Day Years Used Date Smoking Tobacco: Never Assessed Sex and Gender Information Value Date Recorded Sex Assigned at Not on file 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
--- OUTSIDE RECORDS SUMMARY | 2025-07-13 18:06 | XMS_ITS | Encounter Summary ---
Author Organization [facility] Address [address] [place] [address] Care Team Providers Care Foam Caster Name Role Phone Duarte Rodriguez MD Primary Care Provider Encounter Details Date Type Department Care Team (Latest Contact Info) Description 12/09/2004 [facility] [address] [place] [address] Duarte Rodriguez MD [address] [place] [address] ACUTE BRONCHITIS (Primary Dx) Social History Tobacco Use Types Packs/Day Years Used Date Smoking Tobacco: Never Assessed Sex and Gender Information Value Date Recorded Sex Assigned at Not on file 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
--- OUTSIDE RECORDS SUMMARY | 2025-07-13 18:06 | XMS_ITS | Encounter Summary ---
Author Organization [facility] Address [address] [facility] [place] [address] Care Team Providers Care Integration Director Name Role Phone Duarte Rodriguez MD Primary Care Provider Encounter Details Date Type Department Care Team (Latest Contact Info) Description 10/31/1997 Outpatient Historical [facility] Chang Azevedo MD [address] [facility] [address] [place] [address] Hemorrhage of gastrointestinal tract, unspecified (Primary Dx); Diverticulitis of colon Social History Tobacco Use Types Packs/Day Years Used Date Smoking Tobacco: Never Assessed Sex and Gender Information Value Date Recorded Sex Assigned at Not on file 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
--- OUTSIDE RECORDS SUMMARY | 2025-07-13 18:06 | XMS_ITS | Encounter Summary ---
Author Organization [facility] Address [address] [facility] [place] [address] Care Team Providers Care Industrial Maintenance Manager Name Role Phone Duarte Rodriguez MD Primary Care Provider [phone] Encounter Details Date Type Department Care Team (Latest Contact Info) Description 12/19/1998 Outpatient Historical [facility] Chang Azevedo MD [address] [facility] [address] [place] [address] Painful respiration (Primary Dx) Social History Tobacco Use Types Packs/Day Years Used Date Smoking Tobacco: Never Assessed Sex and Gender Information Value Date Recorded Sex Assigned at Not on file Legal Sex Male 5:09 AM SPRING INTERN Gender Identity Not on file Sexual Orientation Not on file documented as of this encounter Plan of Treatment Not on file documented as of this encounter Visit Diagnoses Diagnosis Painful respiration- Primary documented in this encounter Care Teams Industrial Maintenance Manager Relationship Specialty Start Date End Date Duarte Rodriguez MD [address] [place] [address] PCP - General 10/05/07 documented as of this encounter
--- OUTSIDE RECORDS SUMMARY | 2025-07-13 18:06 | XMS_ITS | Encounter Summary ---
Author Organization [facility] Address [address] [facility] [place] [address] Care Team Providers Care Automotive Engineer Name Role Phone Duarte Rodriguez MD Primary Care Provider [phone] Encounter Details Date Type Department Care Team (Latest Contact Info) Description 05/07/1999 Outpatient Historical [facility] Chang Azevedo MD [address] [facility] [address] [place] [address] Lumbago (Primary Dx) Social History Tobacco Use Types Packs/Day Years Used Date Smoking Tobacco: Never Assessed Sex and Gender Information Value Date Recorded Sex Assigned at Not on file 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
--- OUTSIDE RECORDS SUMMARY | 2025-07-13 18:06 | XMS_ITS | Clinical Summary ---
Author Organization [facility] [place] Address [address] [place] [address] Phone Care Team Providers Care Technical Specialist Cytogenetics Name Role Phone Duarte Rodriguez MD Primary Care Provider [phone] Allergies Active Allergy Reactions Criticality Noted Date Comments Amoxicillin-Pot Clavulanate Nausea and Vomiting Low 12/13/2020 Ciprofloxacin Nausea and Vomiting Low 12/13/2020 Cortisone Other (See Comments) 02/23/2008 Face and eyes turned black Gabapentin Nausea and Vomiting Low 12/13/2020 Levofloxacin Nausea and Vomiting Low 12/13/2020 Sulfa (Sulfonamide Antibiotics) Nausea and Vomiting Low 12/13/2020 Medications finasteride (PROSCAR) 5 mg tablet Take 5 mg by mouth daily. Active meloxicam (MOBIC) 15 mg tablet Take 15 mg by mouth daily. Active tamsulosin (FLOMAX) 0.4 mg capsule Take 0.4 mg by mouth 2 times daily. Active lisinopril-hydr oCHLOROthiazide (ZESTORETIC) 20-25 mg tablet Take 1 Tablet by mouth daily. 2 Active tamsulosin (FLOMAX) 0.4 mg capsule TAKE 1 CAPSULE BY MOUTH ONCE DAILY 1 2 HOUR FOLLOWING THE SAME MEAL EACH DAY 1 Active doxycycline hyclate (VIBRAMYCIN) 100 mg capsule Take 100 mg by mouth 2 times daily. Active amLODIPine (NORVASC) 2.5 mg tablet Take 2.5 mg by mouth daily. Active budesonide-form oteroL (SYMBICORT) 160-4.5 mcg/actuation HFA Aerosol Inhaler Take 2 Puffs by inhalation 2 times daily. Active Active Problems Patient Care Coordination No te Formatting of this note migh t be different from the original. PCP Reselection in Progress as of 11-27-21 (insurance mismatch) Problem Noted Date Diagnosed Date Pharyngoesophageal dysphagia 12/27/2020 Arrhythmia 03/28/2010 Immunizations Immunization Administration Dates Next Due Influenza Seasonal Unspecifi ed Formulation IM 07/08/2005,06/14/2004,07/10/1999 Family History Medical History Relation Name Comments Colon Cancer Neg Hx Social History Tobacco Use Types Packs/Day Years Used Date Smoking Tobacco: Never Smokeless Tobacco: Never Alcohol Use Standard Drinks/Week Comments Not Currently 0 (1 standard drink = 0.6 oz pur e alcohol) Feeling Safe Answer Date Recorded Are you in a relationship wi th someone who hurts you emotionally and/or physically? No 01/22/2024 Food Insecurity Answer Date Recorded Patient needs follow up regardin 01/10/2025 Transportation Needs Answer Date Record ed Patient needs follow up regardin 01/10/2025 Housing Stability Answer Date Recorded Social/Environmental Concerns No concerns Utility Needs Answer Date Recorded Patient needs follow up regardin 01/10/2025 Sex and Gender Information Value Date Recorded Sex Assigned at Not on file Legal Sex Male 4:30 AM CLASSIFIED AD CLERK Gender Identity Not on file Sexual Orientation Not on file Last Filed Vital Signs Vital Sign Reading Time Taken Comments Blood Pressure 167/89 01/22/2024 3:07 PM CDT Pulse 72 01/22/2024 3:07 PM CDT Temperature 36.2 C (97.2 F) 11/01/2023 5:00 PM CLASSIFIED AD CLERK Respiratory Rate 16 01/22/2024 3:07 PM CDT Oxygen Saturation 95% 01/22/2024 3:07 PM CDT Inhaled Oxygen Concentration - - Weight 67.1 kg (148 lb) 01/13/2024 1:31 PM CDT Height 175.3 cm (5' 9 ) 01/13/2024 1:31 PM CDT Body Mass Index 21.86 01/13/2024 1:31 PM CDT Plan of Treatment Health Maintenance Due Date Last Done Comments DTAP/TDAP/TD VACCINES (1 - Tdap) 1955 PNEUMOCOCCAL VACCINE 50+ YEA RS (1 of 1 - PCV) 1986 ZOSTER VACCINE (1 of 2) 1986 RSV VACCINE (60+ or ) (1 - 1-dose 75+ series) 2011 INFLUENZA VACCINE (#1) 2025 5, 06/14/2004, 07/10/1999 Insurance [facility] DUAL COMPLETE HMO [facility] [id number] Advance Directives For more information, please contact: [phone] * Full Code (Latest Code Status on File) Date Activated Date Inactivated Comments 01/22/2024 1:12 PM 01/22/2024 5:17 PM * Full Code Date Activated Date Inactivated Comments 12/23/2023 9:21 AM 12/23/2023 1:01 PM * Full Code Date Activated Date Inactivated Comments 11/27/2023 7:19 AM 11/27/2023 10:59 AM * Full Code Date Activated Date Inactivated Comments 12/19/2021 10:49 AM 12/19/2021 2:28 PM * Full Code Date Activated Date Inactivated Comments 06/03/2021 9:40 AM 06/03/2021 2:55 PM Care Teams Technical Specialist Cytogenetics Relationship Specialty Start Date End Date Duarte Rodriguez MD [facility] [place] [address] PCP - General 10/05/07
--- OUTSIDE RECORDS SUMMARY | 2025-07-13 18:06 | XMS_ITS | Encounter Summary ---
Author Organization [employer] [facility] Address [address] [place] [address] Care Team Providers Care Art Installer Name Role Phone Duarte Rodriguez MD Primary Care Provider Encounter Details Date Type Department Care Team (Latest Contact Info) Description 11/26/1998 Outpatient Historical [facility] Chang Azevedo MD [address] [place] [address] Other dyspnea and respiratory abnormality (Primary Dx) Social History Tobacco Use Types Packs/Day Years Used Date Smoking Tobacco: Never Assessed Sex and Gender Information Value Date Recorded Sex Assigned at Not on file Legal Sex Male 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
--- OUTSIDE RECORDS SUMMARY | 2025-07-13 18:06 | XMS_ITS | Encounter Summary ---
Author Organization [facility] Address [address] 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
--- OUTSIDE RECORDS SUMMARY | 2025-07-13 18:06 | XMS_ITS | Encounter Summary ---
Author Organization [facility] Address [address] [place] [address] Care Team Providers Care Electric Motor Controls Assembler Name Role Phone Duarte Rodriguez MD Primary Care Provider Encounter Details Date Type Department Care Team (Latest Contact Info) Description 11/10/2003 [address] [facility] [address] [place] [address] Duarte Rodriguez MD [address] [place] [address] CHRONIC SINUSITIS NOS (Primary Dx) Social History Tobacco Use Types Packs/Day Years Used Date Smoking Tobacco: Never Assessed Sex and Gender Information Value Date Recorded Sex Assigned at Not on file 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
--- OUTSIDE RECORDS SUMMARY | 2025-07-13 18:06 | XMS_ITS | Encounter Summary ---
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) Social History Tobacco Use Types Packs/Day Years Used Date Smoking Tobacco: Never Assessed Sex and Gender Information Value Date Recorded Sex Assigned at Not on file 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
--- OUTSIDE RECORDS SUMMARY | 2025-07-13 18:06 | XMS_ITS | Encounter Summary ---
Author Organization [facility] Address [address] [place] [address] Care Team Providers Care Customer Associate Name Role Phone Duarte Rodriguez MD Primary Care Provider Encounter Details Date Type Department Care Team (Latest Contact Info) Description 12/27/1999 Outpatient Historical [facility] Chang Azevedo MD [address] [facility] [address] [place] [address] Esophageal reflux (Primary Dx); Unspecified hereditary and idiopathic peripheral neuropathy; Special screening for malignant neoplasms of other sites Social History Tobacco Use Types Packs/Day Years Used Date Smoking Tobacco: Never Assessed Sex and Gender Information Value Date Recorded Sex Assigned at Not on file 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
--- OUTSIDE RECORDS SUMMARY | 2025-07-13 18:06 | XMS_ITS | Encounter Summary ---
Author Organization [facility] Address [address] [place] [address] Care Team Providers Care Box Blank Machine Feeder Name Role Phone Duarte Rodriguez MD Primary Care Provider Encounter Details Date Type Department Care Team (Late st Contact Info) Description 12/30/2006 Emergency [facility] Emergency Department [address] [place] [address] Li Pham, DO NO ADDRESS ON FILE Foreign Body in Esophagus (Primary Dx) Social History Tobacco Use Types Packs/Day Years Used Date Smoking Tobacco: Never Assessed Sex and Gender Information Value Date Recorded Sex Assigned at Not on file 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
--- OUTSIDE RECORDS SUMMARY | 2025-07-13 18:06 | XMS_ITS | Encounter Summary ---
Author Organization [facility] Address [address] [place] [address] Care Team Providers Care Shredding Machine Operator Name Role Phone Duarte Rodriguez MD Primary Care Provider [phone] Encounter Details Date Type Department Care Team (Latest Contact Info) Description 01/29/2004 Outpatient [facility] [address] [place] [address] Duarte Rodriguez MD [address] [place] [address] CONTUSION LEG NOS (Primary Dx) Social History Tobacco Use Types Packs/Day Years Used Date Smoking Tobacco: Never Assessed Sex and Gender Information Value Date Recorded Sex Assigned at Not on file 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
--- OUTSIDE RECORDS SUMMARY | 2025-07-13 18:06 | XMS_ITS | Encounter Summary ---
Author Organization [facility] Address [address] [place] [address] Care Team Providers Care Mathematical Statistician Name Role Phone Duarte Rodriguez MD Primary Care Provider [phone] Encounter Details Date Type Department Care Team (Latest Contact Info) Description 06/14/2004 Outpatient Historical [facility] [address] [place] [address] Duarte Rodriguez MD [address] [place] [address] Vaccine for influenza (Primary Dx) Social History Tobacco Use Types Packs/Day Years Used Date Smoking Tobacco: Never Assessed Sex and Gender Information Value Date Recorded Sex Assigned at Not on file Legal 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
--- OUTSIDE RECORDS SUMMARY | 2025-07-13 18:06 | XMS_ITS | Encounter Summary ---
Author Organization [facility] Address [address] [place] [address] Care Team Providers Care Assembler Billiard Table Name Role Phone Duarte Rodriguez MD Primary Care Provider Encounter Details Date Type Department Care Team (Latest Contact Info) Description 10/29/2000 Outpatient Historical [facility] 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
--- NOTE | 2025-07-13 19:43 | W.ED.SKABFB ---
HPI - Skin/Abscess/Foreign Bdy General: Chief complaint: Skin/Abscess/Foreign Body Stated complaint: Rash Neck Pain Time Seen by Provider: 07/13/25 19:40 History of Present Illness: 89-year-old male presents with a chief complaint of hives on chest and torso and upper extremities. Patient states that he is allergic to Bactrim. He saw his urologist earlier in the week and was prescribed Bactrim. He started taking that yesterday evening after which she started developing itchy and red splotchy lesions on his chest, back and torso. Patient has not had a fever. He denies chest pain, wheezing or shortness of breath. He denies any lip, tongue swelling or throat tightness. He denies any abdominal pain, nausea, vomiting or diarrhea. He states he was prescribed Bactrim for a urinary tract infection. Related Data Home Medications ?Medication ?Instructions ?Recorded ?Confirmed amlodipine 2.5 mg tablet 2.5 mg PO QAM 05/17/24 03/14/25 ciprofloxacin HCl 500 mg tablet mg PO ONCE 02/28/25 03/14/25 tamsulosin 0.4 mg capsule mg PO ONCE 02/28/25 03/14/25 Previous Rx's ?Medication ?Instructions ?Recorded amoxicillin 875 mg-potassium 1 tab PO BID 7 days #14 tabs 02/28/25 clavulanate 125 mg tablet epinephrine 0.3 mg/0.3 mL 0.3 mg (0.3 mL) IM Q10M PRN 07/13/25 injection, auto-injector anaphylaxis #2 ea famotidine 40 mg tablet 40 mg PO DAILY 14 days #14 tabs 07/13/25 nitrofurantoin 100 mg PO BID 7 days #14 caps 07/13/25 monohydrate/macrocrystals 100 mg capsule (Macrobid) Allergies Allergy/AdvReac Type Severity Reaction Status Date / Time cortisone Allergy swelling Verified 02/28/25 07:46 in eyes Iodinated Contrast Media Allergy increased Verified 02/28/25 07:46 BP sulfamethoxazole Allergy ALGY-Rash Verified 02/28/25 07:46 [facility] ED PFSH: Medical History (Updated 07/13/25 @ 21:28 by Saranya Sommer MD) BPH loc w urin obs/LUTS Surgical History History of lumbar fusion Hx of cholecystectomy Family History Father , age 66 Cancer lung Mother , Age 80's of unknown cause Social History Smoking and tobacco/nicotine status: never used tobacco/nicotine Alcohol intake: never Substance/Drug Use: never Marital status: Current occupational status: retired Physical Exam Narrative: EXAM NARRATIVE: Vitals were reviewed. Patient is alert, oriented and hemodynamically stable. PERRL, EOMI. Mild periorbital edema. No lip, throat or uvula swelling. No stridor. No wheezing, rhonchi or crackles on exam, SpO2 is 96% on room air. Abdomen is soft, nondistended nontender. Patient has erythematous raised wheals on chest, back and upper extremities that are pruritic. This is consistent with hives. Course Vital Signs: Vital signs: Vital Signs Temperature 97.9 F 07/13/25 18:05 Pulse Rate 77 07/13/25 19:47 Respiratory Rate 14 07/13/25 19:47 Blood Pressure 166/109 07/13/25 19:47 Pulse Oximetry 96 07/13/25 19:47 Oxygen Delivery Me thod Room Air 07/13/25 19:47 MDM - Skin/Abscess/Foreign Bdy Medicial Decision Making 89-year-old male with a chief complaint of hives after he started taking Bactrim yesterday. Differential diagnosis includes but is not limited to, urticaria, allergic reaction, angioedema, anaphylaxis, infectious rash/cellulitis. On exam, patient is helically stable and does not appear toxic. Patient is afebrile. Clinically, presentation is most consistent with hives. He was treated with dexamethasone, Benadryl and famotidine. All radiology interpretation(s) finalized by discharge Discharge Plan Discharge Patient Disposition: Home Clinical Impression: Urticaria Allergic reaction Qualifiers: Encounter type: initial encounter Qualified Code(s): T78.40XA - Allergy, unspecified, initial encounter Condition: Stable Prescriptions: New nitrofurantoin monohyd/m-cryst [Macrobid] 100 mg capsule 100 mg PO BID 7 Days Qty: 14 0RF Rx Instructions: must administer with a meal/food famotidine 40 mg tablet 40 mg PO DAILY 14 Days Qty: 14 0RF epinephrine 0.3 mg/0.3 mL auto-injector 0.3 mg IM Q10M PRN (Reason: anaphylaxis) Qty: 2 0RF Rx Instructions: for 2 doses No Action ciprofloxacin HCl 500 mg tablet PO ONCE tamsulosin 0.4 mg capsule PO ONCE amoxicillin-pot clavulanate 875-125 mg tablet 1 tab PO BID 7 Days Qty: 14 0RF amlodipine 2.5 mg tablet 2.5 mg PO QAM Discharge Orders: Discharge ED (Routine); Ordered 07/13/25 Ordered By: Saranya Sommer Referrals: Domingo Quinones DO [Primary Care Provider, Family Practice] Patient Instructions: Urticaria (ED), Anaphylaxis (ED), Opioid Safety, Pain Management, Patient Portal & Gerald Instructions Activity Restrictions/Additional Instructions: Please discontinue the antibiotic you have been prescribed and start Macrobid twice a day for 7 days for urinary tract infection instead. Please take famotidine once daily for the next 2 weeks. Every 6 hours, you may take 25 to 50 mg of Benadryl for itching. You have been given a handout on anaphylaxis. Please read this handout. This is a description of a condition that is a severe allergic reaction for which you may need to use an epinephrine pen at home. You have been prescribed an epinephrine pen for severe allergic reactions. Familiarize yourself with the symptoms of this condition so that you may use it if symptoms arise as this condition can progress very quickly. Continue to monitor your condition closely at home. If your condition worsens or additional concerns arise, please return to the emergency department for reassessment. Print Language: Divehi Coding Level of Care Code ED [facility]
[2025-07-13 19:47] VITALS: BP 166/109; PULSE 77; RESP 14; O2SAT 96
[2025-07-13 21:33] VITALS: BP 145/88; PULSE 73; RESP 14; O2SAT 95
== END 2025-07-13 21:40 | disposition home or self-care (01) ==
PROVIDERS: Emergency Provider Emergency Medicine; PCP Family Medicine
DX: L50.9 Urticaria, unspecified (principal); T78.40XA Allergy, unspecified, initial encounter; X58.XXXA Exposure to other specified factors, initial encounter
CPT/HCPCS: 96372; 99284; J1100; J9999; Q0163